=== PATIENT | male | born 1955 | race American Indian/Alaskan Native ===

== ENCOUNTER 2016-10-29 23:21 | Inpatient (IN) | payer MEDICAID ==
[2016-10-30 00:29] LABS: Basophils % (Auto) 1.2 % (0.0-1.8); Eosinophils % (Auto) 0.1 % (0.0-4.3); Hematocrit 41.8 % (35.5-45.6); Hemoglobin 13.7 gm/dl (11.8-15.2); Mean Corpuscular HGB Conc 33 % (32-34); Mean Corpuscular Hemoglobin 30 pg (28-32); Mean Corpuscular Volume 91 fl (84-94); Red Blood Count 4.61 M/mm3 (3.65-5.03); Red Cell Distribution Width 14.4 % (13.2-15.2); White Blood Count 4.5 K/mm3 (4.5-11.0)
[2016-10-30 00:43] LABS: Anion Gap 20 mmol/L; BUN/Creatinine Ratio 15.83; Blood Urea Nitrogen 19 mg/dL (9-20); Calcium 9.6 mg/dL (8.4-10.2); Carbon Dioxide 26 mmol/L (22-30); Chloride 102.4 mmol/L (98-107); Glucose 123 mg/dL (75-100); Potassium 5.2 mmol/L (3.6-5.0); Sodium 143 mmol/L (137-145)
[2016-10-30 03:17] LABS: Bilirubin,Urine NEG (Negative); Blood,Urine SM (Negative); Ketones,Urine TR mg/dL (Negative); Leukocyte Esterase,Urine NEG (Negative); Mucus,Urine 3+ /HPF; Nitrite,Urine NEG (Negative); Urobilinogen,Urine < 2.0 mg/dL (<2.0)
[2016-10-30 03:22] LABS: Protein,Urine >500 mg/dL (Negative)
[2016-10-30] MEDS ORDERED: HCTZ PO ONE (04:47)
[2016-10-30] MEDS ORDERED: LASIX PO ONE (04:47)
[2016-10-30] MEDS ORDERED: NITROSTAT SL ONE (04:47)
[2016-10-30 04:57] LABS: Platelet Count 201 K/mm3 (140-440)
[2016-10-30] MEDS ORDERED: ZOFRAN IV ONE (06:55)
[2016-10-30] MEDS ORDERED: NITRO-BID 2% TP ONE (06:55)
[2016-10-30] MEDS ORDERED: PEPCID IV ONE (06:55)
[2016-10-30] MEDS ORDERED: LASIX IV ONE (06:55)
[2016-10-30] MEDS ORDERED: MORPHINE IV ONE (06:55)
[2016-10-30 07:09] LABS: Creatine Kinase MB 5.8 ng/mL (0.0-4.0)
[2016-10-30 07:10] LABS: Albumin 3.8 g/dL (3.9-5); Albumin/Globulin Ratio 1.2 %; Bilirubin,Direct 0.2 mg/dL (0-0.2); Bilirubin,Indirect 0.7 mg/dL; Bilirubin,Total 0.9 mg/dL (0.1-1.2); Creatine Kinase 240 units/L (55-170); Total Protein 6.9 g/dL (6.3-8.2)
--- NOTE | 2016-10-30 07:14 | Emergency Department Report ---
ED Shortness of Breath HPI - General Chief Complaint: Nausea/Vomiting/Diarrhea Stated Complaint: HIGH BP/EMESIS Time Seen by Provider: 10/30/16 06:34 Source: patient, old records reviewed (card cath 10/2015 normal coronary arteries , EF 20-25%, nonischemic cardiopathy. See report for other findings.) Mode of arrival: Ambulatory Limitations: No Limitations - History of Present Illness Initial Comments: 61-year-old male with past medical history of COPD (no home O2), hypertension and CHF presents to the hospital with complaints of gradually worsening shortness of breath and nausea vomiting. The past week patient has been experiencing dyspnea exertion, orthopnea, PND, intermittent chest tightness. Moderate Chest tightness episodes last 10-20 minutes and spontaneously improved. The past 2 days she has had nausea vomiting with diarrhea and by mouth intolerance. Patient ran out of his medication including Lasix and BP meds 1 month ago. Patient does not have a primary care doctor has poor understanding of his current health condition. Last visit here was one year ago when patient received a cardiac cath and echocardiogram. Patient states he has had several visits to [place] in other hospitals since that admission. He has a history of wearing a defibrillator vest in the past. He does not have a PMD and does not typically follow-up as outpatient instead presents to the ER after his meds ran out. Card: seen by [facility] here in the past - Related Data Previous Rx's Medication Instructions Recorded Last Taken Type Albuterol Sulfate [Ventolin HFA] 2 puff IH Q4H PRN #1 hfa.aer.ad 11/02/15 Unknown Rx Budesoni/Formotero 160-4.5(Nf) 2 puff IH BID #1 inha 11/02/15 Unknown Rx [Symbicort 160-4.5 (Nf)] Carvedilol [Coreg] 25 mg PO BID #60 tablet 11/02/15 Unknown Rx Doxycycline [Vibramycin CAP] 100 mg PO BID #10 capsule 11/02/15 Unknown Rx Furosemide [Lasix] 20 mg PO BID #60 tablet 11/02/15 Unknown Rx Lisinopril [Zestril TAB] 20 mg PO QDAY #30 tablet 11/02/15 Unknown Rx Allergies Allergy/AdvReac Type Severity Reaction Status Date / Time No Known Allergies Allergy Unverified 03/14/16 04:30 ED Review of Systems ROS: Stated complaint: HIGH BP/EMESIS Other details as noted in HPI Comment: All other systems reviewed and negative Other: Constitutional: No fevers chills Eyes: No eye pain visual changes ENT: No ear pain or throat pain Neck: Denies pain Respiratory: + cough productive of yellow sputum Cardiovascular: Denies palpitations, syncope GI: As per HPI : Denies dysuria Musculoskeletal: Denies back pain Skin: Denies rash, lesions, erythema Neurologic: Denies headache, numbness, weakness ED Past Medical Hx - Past Medical History Hx Hypertension: Yes Hx Heart Attack/AMI: No Hx Congestive Heart Failure: Yes Hx Diabetes: No Hx Deep Vein Thrombosis: No Hx Pulmonary Embolism: No Hx Asthma: No Hx COPD: Yes Hx Tuberculosis: No Hx HIV: No Additional medical history: Cardiac cath 11/04/2015 normal coronary arteries. Severe LV dysfunction 20-25%. Nonischemic cardiomyopathy. Echocardiogram 10/31: EF 10-15%, severe LA dilitation, mild to mod RA dilitation, Severe RV dilitation, LV mild dilitation - Surgical History Hx Coronary Stent: No Hx Open Heart Surgery: No Hx Pacemaker: No Hx Internal Defibrillator: No Hx Cholecystectomy: No Hx Appendectomy: No Hx Breast Surgery: No - Social History Smoking Status: Current Every Day Smoker Substance Use Type: None - Medications Home Medications: Home Medications Medication Instructions Recorded Confirmed Last Taken Type Albuterol Sulfate [Ventolin HFA] 2 puff IH Q4H PRN #1 hfa.aer.ad 11/02/15 Unknown Rx Budesoni/Formotero 160-4.5(Nf) 2 puff IH BID #1 inha 11/02/15 Unknown Rx [Symbicort 160-4.5 (Nf)] Carvedilol [Coreg] 25 mg PO BID #60 tablet 11/02/15 Unknown Rx Doxycycline [Vibramycin CAP] 100 mg PO BID #10 capsule 11/02/15 Unknown Rx Furosemide [Lasix] 20 mg PO BID #60 tablet 11/02/15 Unknown Rx Lisinopril [Zestril TAB] 20 mg PO QDAY #30 tablet 11/02/15 Unknown Rx ED Physical Exam - General Limitations: No Limitations - Other Other exam information: General: No limitations, patient is alert in no acute distress Head exam: Atraumatic, normocephalic Eyes exam: Normal appearance ENT: Moist mucous membrane, normal oropharynx Neck exam: Normal inspection, full range of motion, no meningismus nontender Respiratory exam: Bilateral crackles, no tachypnea or accessory muscle use Cardiovascular: Normal rate and rhythm, normal heart sounds Abdomen: Soft, nondistended, epigastric tenderness, with normal bowel sounds, no rebound, or guarding Extremity: Full range of motion normal inspection no deformity, no edema Back: Normal Inspection, full range of motion, no tenderness Neurologic: Alert, oriented x3, cranial nerves intact, no motor or sensory deficit Psychiatric: normal affect, normal mood Skin: Warm, dry, intact ED Course Vital Signs 10/29/16 10/30/16 10/30/16 23:34 03:24 06:03 Temperature 98.2 F Pulse Rate 104 H 101 H Respiratory 14 19 Rate Blood Pressure 162/122 Blood Pressure 155/119 160/129 [Left] O2 Sat by Pulse 107 H 99 99 Oximetry ED Medical Decision Making - Lab Data Result diagrams: 10/30/16 00:00 10/30/16 00:00 Lab Results 10/30/16 10/30/16 10/30/16 Range/Units 00:00 00:00 00:00 WBC 4.5 (4.5-11.0) K/mm3 RBC 4.61 (3.65-5.03) M/mm3 Hgb 13.7 (11.8-15.2) gm/dl Hct 41.8 (35.5-45.6) % MCV 91 (84-94) fl MCH 30 (28-32) pg MCHC 33 (32-34) % RDW 14.4 (13.2-15.2) % Plt Count 201 (140-440) K/mm3 Lymph % (Auto) 43.3 H (13.4-35.0) % [place] % (Auto) 7.7 H (0.0-7.3) % Eos % (Auto) 0.1 (0.0-4.3) % Baso % (Auto) 1.2 (0.0-1.8) % Lymph # 2.0 (1.2-5.4) K/mm3 [place] # 0.3 (0.0-0.8) K/mm3 Eos # 0.0 (0.0-0.4) K/mm3 Baso # 0.1 (0.0-0.1) K/mm3 Seg Neutrophils % 47.7 (40.0-70.0) % Seg Neutrophils # 2.1 (1.8-7.7) K/mm3 Sodium 143 (137-145) mmol/L Potassium 5.2 H (3.6-5.0) mmol/L Chloride 102.4 (98-107) mmol/L Carbon Dioxide 26 (22-30) mmol/L Anion Gap 20 mmol/L BUN 19 (9-20) mg/dL Creatinine 1.2 (0.8-1.5) mg/dL Estimated GFR > 60 ml/min BUN/Creatinine Ratio 15.83 % Glucose 123 H (75-100) mg/dL Calcium 9.6 (8.4-10.2) mg/dL Total Bilirubin (0.1-1.2) mg/dL Direct Bilirubin (0-0.2) mg/dL Indirect Bilirubin mg/dL AST (5-40) units/L ALT (7-56) units/L Alkaline Phosphatase (35-129) units/L Total Creatine Kinase (55-170) units/L CK-MB (CK-2) (0.0-4.0) ng/mL CK-MB (CK-2) Rel Index (0-4) Troponin T (0.00-0.029) ng/mL NT-Pro-B Natriuret Pep 60747 H (0-900) pg/mL Total Protein (6.3-8.2) g/dL Albumin (3.9-5) g/dL Albumin/Globulin Ratio % Lipase (13-60) units/L Urine Color (Yellow) Urine Turbidity (Clear) Urine pH (5.0-7.0) Ur Specific [place] (1.003-1.030) Urine Protein (Negative) mg/dL Urine Glucose (UA) (Negative) mg/dL Urine Ketones (Negative) mg/dL Urine Blood (Negative) Urine Nitrite (Negative) Urine Bilirubin (Negative) Urine Urobilinogen (<2.0) mg/dL Ur Leukocyte Esterase (Negative) Urine WBC (Auto) (0.0-6.0) /HPF Urine RBC (Auto) (0.0-6.0) /HPF U Epithel Cells (Auto) (0-13.0) /HPF Amorphous Crystals Hyaline Casts /LPF Urine Mucus /HPF 10/30/16 10/30/16 10/30/16 Range/Units 00:00 00:00 Unknown WBC (4.5-11.0) K/mm3 RBC (3.65-5.03) M/mm3 Hgb (11.8-15.2) gm/dl Hct (35.5-45.6) % MCV (84-94) fl MCH (28-32) pg MCHC (32-34) % RDW (13.2-15.2) % Plt Count (140-440) K/mm3 Lymph % (Auto) (13.4-35.0) % [place] % (Auto) (0.0-7.3) % Eos % (Auto) (0.0-4.3) % Baso % (Auto) (0.0-1.8) % Lymph # (1.2-5.4) K/mm3 [place] # (0.0-0.8) K/mm3 Eos # (0.0-0.4) K/mm3 Baso # (0.0-0.1) K/mm3 Seg Neutrophils % (40.0-70.0) % Seg Neutrophils # (1.8-7.7) K/mm3 Sodium (137-145) mmol/L Potassium (3.6-5.0) mmol/L Chloride (98-107) mmol/L Carbon Dioxide (22-30) mmol/L Anion Gap mmol/L BUN (9-20) mg/dL Creatinine (0.8-1.5) mg/dL Estimated GFR ml/min BUN/Creatinine Ratio % Glucose (75-100) mg/dL Calcium (8.4-10.2) mg/dL Total Bilirubin 0.9 (0.1-1.2) mg/dL Direct Bilirubin 0.2 (0-0.2) mg/dL Indirect Bilirubin 0.7 mg/dL AST 41 H (5-40) units/L ALT 36 (7-56) units/L Alkaline Phosphatase 57 (35-129) units/L Total Creatine Kinase 240 H (55-170) units/L CK-MB (CK-2) 5.8 H (0.0-4.0) ng/mL CK-MB (CK-2) Rel Index 2.4 (0-4) Troponin T < 0.010 (0.00-0.029) ng/mL NT-Pro-B Natriuret Pep (0-900) pg/mL Total Protein 6.9 (6.3-8.2) g/dL Albumin 3.8 L (3.9-5) g/dL Albumin/Globulin Ratio 1.2 % Lipase 11 L (13-60) units/L Urine Color Suzy (Yellow) Urine Turbidity Clear (Clear) Urine pH 5.0 (5.0-7.0) Ur Specific [place] 1.031 H (1.003-1.030) Urine Protein >500 (Negative) mg/dL Urine Glucose (UA) 50 (Negative) mg/dL Urine Ketones Tr (Negative) mg/dL Urine Blood Sm (Negative) Urine Nitrite Neg (Negative) Urine Bilirubin Neg (Negative) Urine Urobilinogen < 2.0 (<2.0) mg/dL Ur Leukocyte Esterase Neg (Negative) Urine WBC (Auto) 2.0 (0.0-6.0) /HPF Urine RBC (Auto) 4.0 (0.0-6.0) /HPF U Epithel Cells (Auto) < 1.0 (0-13.0) /HPF Amorphous Crystals Few Hyaline Casts 88 /LPF Urine Mucus 3+ /HPF - EKG Data -: EKG Interpreted by Me (nsr [id number], Biatrial enlargment, lat t inv, no stemi) - EKG Data When compared to previous EKG there are: previous EKG unavailable - Radiology Data Radiology results: image reviewed (chest x-ray: Pulmonary vascular congestion) - Medical Decision Making I spent time explaining patient's current medical condition based on previous cardiac cath and echocardiogram. I informed him of his heart failure and poor ejection fraction and the importance of medication compliance and follow-up. Patient voices understanding and states he will attempt to follow up better and a future. At this time patient requires admission to the hospital for acute CHF exacerbation secondary to medication noncompliance. Patient also has epigastric pain without signs of fever, leukocytosis, or elevated LFTs or lipase. Medications received in the ED: Patient received Lasix 20 mg by mouth, hydrochlorothiazide, and nitroglycerin sublingual prior to my evaluation. After my evaluation patient received nitroglycerin paste, IV lasix, Zofran, morphine, and Pepcid. - Differential Diagnosis gastritis, pancreatitis, MS, unstable angina, CHF Critical Care Time: No Critical care attestation.: If time is entered above; I have spent that time in minutes in the direct care of this critically ill patient, excluding procedure time. ED Disposition Clinical Impression: Acute CHF, Epigastric pain, Nausea and vomiting, Noncompliance with medication regimen, Uncontrolled hypertension, Chest pain Disposition: OP ADMITTED IP TO THIS HOSP Is pt being admited?: Yes Condition: Stable Instructions: Chest Pain (ED) Time of Disposition: 07:14 ( hosp, discussed with Dr Lundberg)
--- NOTE | 2016-10-30 07:23 | XRay Report ---
AP CHEST History: Chest pain Findings: Cardiomegaly and pulmonary venous congestion are stable since 11/01/15. The lungs are generally clear. No evidence for CHF, pneumonia or pneumothorax. The thoracic cage is intact. Impression: Cardiomegaly and pulmonary venous congestion unchanged since the exam one year ago.
--- NOTE | 2016-10-30 08:24 | Admit Criteria Form ---
Admission Criteria Documentation: HEART FAILURE: COMMON COMPLICATIONS Clinical Indications for Inpatient Care (Place 'X' for any and all applicable criteria): Ongoing inpatient care may be indicated for heart failure with ANY ONE of the following (1)(2)(3)(4)(5): [ ]I. Ongoing need for care for primary condition requiring frequent therapy adjustments because of changes in cardiac function (eg, drug dosage changes for drugs that are renally metabolized) [ ]II. New-onset heart failure [ ]III. Heart failure with decreased urine output not responsive to attempts to optimize volume status [ ]IV. Acute cardiac ischemia causing or associated with failure [X]V. Complications of heart failure, including ANY ONE of the following: [ ]a) Pericardial effusion [ ]b) Symptomatic pleural effusion [ ]c) O2 saturation <90% or PO2 < 60 mm Hg (8.0 kPa) on room air or require baseline supplemental O2 [ ]d) Tachypnea [X]e) Dyspnea [ ]f) Syncope [ ]g) Change in mental status [ ]h) Acute renal insufficiency that is severe (reduction of more than 50% in estimated glomerular filtration rate from baseline) or progressive reduction of more than 25% in estimated glomerular filtration rate from baseline, with creatinine continuing to rise) [ ]i) Hemodynamic instability [ ]j) Anasarca [ ]k) Clinically significant metabolic abnormalities due to heart failure (eg, new-onset metabolic acidosis) Extended stay beyond goal length of stay for primary condition may be needed until ALL of the following are present(1)(3): [ ]a) Stable and effective diuretic regimen established (or patient on stable dialysis regimen if in chronic renal failure) [ ]b) Breathing comfortably at rest [ ]c) Saturation of arterial oxygen greater than 90% or at acceptable baseline [ ]d) Pulmonary edema absent or improved [ ]e) Hemodynamic stability [ ]f) Volume status acceptable on oral medication [ ]g) Peripheral or sacral edema absent or improved [ ]h) Renal function stable and manageable at a lower level of care [ ]i) Complications (eg, pleural effusion) resolved or manageable at a lower level of care [ ]j) Patient or caregiver has received written discharge instructions or educational material addressing activity level, diet, discharge medications, follow-up appointment, weight monitoring, and what to do if symptoms worsen The original [facility] content created by [employer] has been revised. The portions of the content which have been revised are identified through the use of italic text or in bold, and [facility] has neither reviewed nor approved the modified material.All other unmodified content is copyright [facility]. Please see references footnoted in the original [facility] edition 2016 Admission Criteria Met: Yes
--- NOTE | 2016-10-30 09:14 | History and Physical Report ---
History of Present Illness Date of examination: 10/30/16 Date of admission: 10/30/16 07:48 Chief complaint: sob History of present illness: 61-year-old male with past medical history of COPD (no home O2), hypertension and CHF presents to the hospital with complaints of gradually worsening shortness of breath, nausea and vomiting. Patient denies hematemesis. Patient has been experiencing dyspnea exertion, orthopnea, PND and intermittent chest tightness for the past week. The chest discomfort is described as tightness with episodes lasting 10-20 minutes. He is also had nausea vomiting with diarrhea for the past 2 days. He ran out of his medication including Lasix and BP meds 1 month ago. Patient does not have a primary care doctor has poor understanding of his current health condition. Last visit here was one year ago when patient received a cardiac cath and echocardiogram. Patient states he has had several visits to [place] in other hospitals since that admission. He has a history of wearing a defibrillator vest in the past. He does not have a PMD and does not typically follow-up as outpatient instead presents to the ER after his meds ran out. Past History Past Medical History: COPD, heart failure, hypertension Past Surgical History: No surgical history Social history: no significant social history Family history: no significant family history Medications and Allergies Allergies Allergy/AdvReac Type Severity Reaction Status Date / Time No Known Allergies Allergy Unverified 11/01/15 04:30 Home Medications Medication Instructions Recorded Confirmed Last Taken Type Albuterol Sulfate [Ventolin HFA] 2 puff IH Q4H PRN #1 hfa.aer.ad 11/02/15 Unknown Rx Budesoni/Formotero 160-4.5(Nf) 2 puff IH BID #1 inha 11/02/15 Unknown Rx [Symbicort 160-4.5 (Nf)] Carvedilol [Coreg] 25 mg PO BID #60 tablet 11/02/15 Unknown Rx Doxycycline [Vibramycin CAP] 100 mg PO BID #10 capsule 11/02/15 Unknown Rx Furosemide [Lasix] 20 mg PO BID #60 tablet 11/02/15 Unknown Rx Lisinopril [Zestril TAB] 20 mg PO QDAY #30 tablet 11/02/15 Unknown Rx Review of Systems All systems: negative Exam - Constitutional Vitals: Temp Pulse Resp BP Pulse Ox 98.2 F 102 H 30 H 157/124 96 10/29/16 23:34 10/30/16 08:15 10/30/16 08:15 10/30/16 08:01 10/30/16 08:15 General appearance: Present: no acute distress, well-nourished - EENT Eyes: Present: PERRL ENT: hearing intact, clear oral mucosa - Neck Neck: Present: supple, normal ROM - Respiratory Respiratory effort: normal Respiratory: bilateral: diminished, rales - Cardiovascular Heart Sounds: Present: S1 & S2. Absent: rub, click - Extremities Extremities: pulses symmetrical, No edema Peripheral Pulses: within normal limits - Abdominal General gastrointestinal: Present: soft, non-tender, non-distended, normal bowel sounds Male genitourinary: Present: normal - Integumentary Integumentary: Present: clear, warm, dry - Musculoskeletal Musculoskeletal: gait normal, strength equal bilaterally - Psychiatric Psychiatric: appropriate mood/affect, intact judgment & insight - Neurologic Neurologic: CNII-XII intact, moves all extremities Results - Labs CBC & Chem 7: 10/30/16 00:00 10/30/16 00:00 Labs: Laboratory Last Values WBC 4.5 K/mm3 (4.5-11.0) 10/30/16 00:00 RBC 4.61 M/mm3 (3.65-5.03) 10/30/16 00:00 Hgb 13.7 gm/dl (11.8-15.2) 10/30/16 00:00 Hct 41.8 % (35.5-45.6) 10/30/16 00:00 MCV 91 fl (84-94) 10/30/16 00:00 MCH 30 pg (28-32) 10/30/16 00:00 MCHC 33 % (32-34) 10/30/16 00:00 RDW 14.4 % (13.2-15.2) 10/30/16 00:00 Plt Count 201 K/mm3 (140-440) 10/30/16 00:00 Lymph % (Auto) 43.3 % (13.4-35.0) H 10/30/16 00:00 [place] % (Auto) 7.7 % (0.0-7.3) H 10/30/16 00:00 Eos % (Auto) 0.1 % (0.0-4.3) 10/30/16 00:00 Baso % (Auto) 1.2 % (0.0-1.8) 10/30/16 00:00 Lymph # 2.0 K/mm3 (1.2-5.4) 10/30/16 00:00 [place] # 0.3 K/mm3 (0.0-0.8) 10/30/16 00:00 Eos # 0.0 K/mm3 (0.0-0.4) 10/30/16 00:00 Baso # 0.1 K/mm3 (0.0-0.1) 10/30/16 00:00 Seg Neutrophils % 47.7 % (40.0-70.0) 10/30/16 00:00 Seg Neutrophils # 2.1 K/mm3 (1.8-7.7) 10/30/16 00:00 Sodium 143 mmol/L (137-145) 10/30/16 00:00 Potassium 5.2 mmol/L (3.6-5.0) H 10/30/16 00:00 Chloride 102.4 mmol/L (98-107) 10/30/16 00:00 Carbon Dioxide 26 mmol/L (22-30) 10/30/16 00:00 Anion Gap 20 mmol/L 10/30/16 00:00 BUN 19 mg/dL (9-20) 10/30/16 00:00 Creatinine 1.2 mg/dL (0.8-1.5) 10/30/16 00:00 Estimated GFR > 60 ml/min 10/30/16 00:00 BUN/Creatinine Ratio 15.83 % 10/30/16 00:00 Glucose 123 mg/dL (75-100) H 10/30/16 00:00 Calcium 9.6 mg/dL (8.4-10.2) 10/30/16 00:00 Total Bilirubin 0.9 mg/dL (0.1-1.2) 10/30/16 00:00 Direct Bilirubin 0.2 mg/dL (0-0.2) 10/30/16 00:00 Indirect Bilirubin 0.7 mg/dL 10/30/16 00:00 AST 41 units/L (5-40) H 10/30/16 00:00 ALT 36 units/L (7-56) 10/30/16 00:00 Alkaline Phosphatase 57 units/L (35-129) 10/30/16 00:00 Total Creatine Kinase 240 units/L (55-170) H 10/30/16 00:00 CK-MB (CK-2) 5.8 ng/mL (0.0-4.0) H 10/30/16 00:00 CK-MB (CK-2) Rel Index 2.4 (0-4) 10/30/16 00:00 Troponin T < 0.010 ng/mL (0.00-0.029) 10/30/16 00:00 NT-Pro-B Natriuret Pep 46237 pg/mL (0-900) H 10/30/16 00:00 Total Protein 6.9 g/dL (6.3-8.2) 10/30/16 00:00 Albumin 3.8 g/dL (3.9-5) L 10/30/16 00:00 Albumin/Globulin Ratio 1.2 % 10/30/16 00:00 Lipase 11 units/L (13-60) L 10/30/16 00:00 Urine Color Suzy (Yellow) 10/30/16 Unknown Urine Turbidity Clear (Clear) 10/30/16 Unknown Urine pH 5.0 (5.0-7.0) 10/30/16 Unknown Ur Specific [place] 1.031 (1.003-1.030) H 10/30/16 Unknown Urine Protein >500 mg/dL (Negative) 10/30/16 Unknown Urine Glucose (UA) 50 mg/dL (Negative) 10/30/16 Unknown Urine Ketones Tr mg/dL (Negative) 10/30/16 Unknown Urine Blood Sm (Negative) 10/30/16 Unknown Urine Nitrite Neg (Negative) 10/30/16 Unknown Urine Bilirubin Neg (Negative) 10/30/16 Unknown Urine Urobilinogen < 2.0 mg/dL (<2.0) 10/30/16 Unknown Ur Leukocyte Esterase Neg (Negative) 10/30/16 Unknown Urine WBC (Auto) 2.0 /HPF (0.0-6.0) 10/30/16 Unknown Urine RBC (Auto) 4.0 /HPF (0.0-6.0) 10/30/16 Unknown U Epithel Cells (Auto) < 1.0 /HPF (0-13.0) 10/30/16 Unknown Amorphous Crystals Few 10/30/16 Unknown Hyaline Casts 88 /LPF 10/30/16 Unknown Urine Mucus 3+ /HPF 10/30/16 Unknown Assessment and Plan Assessment and plan: 1. Acute on chronic systolic heart failure exacerbation. Cardiac cath 2015 normal coronary arteries. Severe LV dysfunction 20-25%. Nonischemic cardiomyopathy. Echocardiogram 11/01/2015: EF 10-15%, severe LA dilitation, mild to mod RA dilitation, Severe RV dilitation, LV mild dilitation. Patient will be placed on the heart failure pathway. Cardiology consultation. 2. Accelerated hypertension. Resume antihypertensive medications. 3. Medical noncompliance. Patient has been counseled.
[2016-10-30] MEDS ORDERED: ZOFRAN IV PRN (09:19)
[2016-10-30] MEDS ORDERED: DULCOLAX PR PRN (09:19)
[2016-10-30] MEDS: COREG PO SCH ×2 (11:26→21:56)
[2016-10-30] MEDS: LASIX IV SCH (11:26)
[2016-10-30] MEDS: ZESTRIL PO SCH ×2 (11:26→21:57)
[2016-10-30] MEDS: LOVENOX SUB-Q SCH (11:26)
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
[2016-10-30] MEDS: TYLENOL PO PRN (20:45)
[2016-10-31 06:23] LABS: Basophils % (Auto) 0.8 % (0.0-1.8); Eosinophils % (Auto) 0.5 % (0.0-4.3); Hematocrit 39.8 % (35.5-45.6); Mean Corpuscular HGB Conc 33 % (32-34); Mean Corpuscular Hemoglobin 29 pg (28-32); Mean Corpuscular Volume 89 fl (84-94); Platelet Count 178 K/mm3 (140-440); Red Blood Count 4.47 M/mm3 (3.65-5.03); Red Cell Distribution Width 14.3 % (13.2-15.2); White Blood Count 4.8 K/mm3 (4.5-11.0)
[2016-10-31 06:32] LABS: Anion Gap 17 mmol/L; BUN/Creatinine Ratio 17.14; Blood Urea Nitrogen 24 mg/dL (9-20); Calcium 8.6 mg/dL (8.4-10.2); Carbon Dioxide 28 mmol/L (22-30); Chloride 98.4 mmol/L (98-107); Glucose 115 mg/dL (75-100); Potassium 4.3 mmol/L (3.6-5.0); Sodium 139 mmol/L (137-145)
[2016-10-31] MEDS: LOVENOX SUB-Q SCH (10:05)
[2016-10-31] MEDS: ZESTRIL PO SCH ×2 (10:06→21:32)
[2016-10-31] MEDS: TYLENOL PO PRN (10:06)
[2016-10-31] MEDS: COREG PO SCH ×2 (10:06→21:32)
[2016-10-31] MEDS: LASIX IV SCH (10:06)
[2016-10-31] MEDS: MILK OF MAGNESIA PO PRN ×2 (10:06→21:32)
--- NOTE | 2016-10-31 10:59 | Progress Note ---
Assessment and Plan Acute on chronic systolic heart failure due to non-compliance Echo 10/2016: biatrial enlargement, dilated RV, EF 15-20%, moderate MR, moderate TR, RVSP 50 mmHg continue IV lasix, coreg, lisinopril Atypical chest pain-->resolved troponin negative no acute EKG changes [facility] 10/2015: normal coronaries Non-ischemic cardiomyopathy refusing ICD implantation Hypertension Tobacco abuse Cocaine abuse Non-compliance Continue current management and close monitoring of volume status and renal indices. The patient has been seen in conjunction with Dr. Gross who agrees with the assessment and plan of care. Subjective Date of service: 10/31/16 Principal diagnosis: acute on chronic systolic heart failure Interval history: The patient is resting comfortably in bed. He is still short of breath with minimal exertion. Sinus rhythm on the monitor. 6 beat run of NSVT noted this morning. Objective Last Vital Signs Temp 99.0 F 10/31/16 08:27 Pulse 89 10/31/16 10:06 Resp 18 10/31/16 10:06 BP 141/104 10/31/16 10:06 Pulse Ox 96 10/31/16 10:00 - Physical Examination General: No Apparent Distress HEENT: Positive: PERRL, Normocephaly, Mucus Membranes Moist Neck: Positive: neck supple, trachea midline Cardiac: Positive: Reg Rate and Rhythm, S1/S2, Systolic Murmur Lungs: Positive: clear to auscultation Neuro: Positive: Grossly Intact Abdomen: Positive: Soft, Active Bowel Sounds. Negative: Tender Skin: Positive: Clear. Negative: Rash Extremities: Absent: edema - Labs and Meds CBC 10/31/16 Range/Units 05:45 WBC 4.8 (4.5-11.0) K/mm3 RBC 4.47 (3.65-5.03) M/mm3 Hgb 13.0 (11.8-15.2) gm/dl Hct 39.8 (35.5-45.6) % Plt Count 178 (140-440) K/mm3 Lymph # 2.2 (1.2-5.4) K/mm3 [place] # 0.5 (0.0-0.8) K/mm3 Eos # 0.0 (0.0-0.4) K/mm3 Baso # 0.0 (0.0-0.1) K/mm3 Comprehensive Metabolic Panel 10/31/16 Range/Units 05:45 Sodium 139 (137-145) mmol/L Potassium 4.3 (3.6-5.0) mmol/L Chloride 98.4 (98-107) mmol/L Carbon Dioxide 28 (22-30) mmol/L BUN 24 H (9-20) mg/dL Creatinine 1.4 (0.8-1.5) mg/dL Glucose 115 H (75-100) mg/dL Calcium 8.6 (8.4-10.2) mg/dL - Imaging and Cardiology EKG: image reviewed Echo: report reviewed ( 10/2016: biatrial enlargement, dilated RV, EF 15-20%, moderate MR, moderate TR, RVSP 50 mmHg) - EKG Sinus rhythms and dysrhythmias: sinus rhythm
--- NOTE | 2016-10-31 16:44 | Progress Note ---
Assessment and Plan Assessment and plan: 1. Acute on chronic systolic heart failure exacerbation. Cardiac cath 2015 normal coronary arteries. Severe LV dysfunction 20-25%. Nonischemic cardiomyopathy. Echocardiogram 11/01/2015: EF 10-15%, severe LA dilitation, mild to mod RA dilitation, Severe RV dilitation, LV mild dilitation. Cardiology input appreciated, patient continues to refuse ICD placement, states that he will consider his outpatient. Continue diuretics, continue cardiac medications 2. Accelerated hypertension. Resume antihypertensive medications. 3. Medical noncompliance. Patient has been counseled. 4. Chronic pain syndrome pain meds have been ordered. 5. hx of cocaine abuse he was counseled about cesssation, he was also told that cocaine abuse puts him at risk of [place] and sudden , and he verbalized understanding. Tentative discharge home tomorrow History Interval history: continues to have VILLAGOMEZ, he has chronic chest pain that occurs at rest. LE edema is now resolved Hospitalist Physical - Physical exam Narrative exam: General: Patient appears well in no distress, cachectic HEENT: MMM, EOMI cardiac: S1-S2 heard lungs: clear to auscultation, abdomen: soft, nontender, nondistended bowel sounds positive extremities: no edema clubbing or cyanosis Skin: no rash or lesion Neuro: no focal deficit Psych: appropriate behavior and mood, cognition intact - Constitutional Vitals: Temp Pulse Resp BP Pulse Ox 97.9 F 70 18 147/103 99 10/31/16 13:08 10/31/16 13:08 10/31/16 13:08 10/31/16 13:08 10/31/16 13:08 General appearance: Present: no acute distress Results - Labs CBC & Chem 7: 10/31/16 05:45 10/31/16 05:45 Labs: Laboratory Last Values WBC 4.8 K/mm3 (4.5-11.0) 10/31/16 05:45 RBC 4.47 M/mm3 (3.65-5.03) 10/31/16 05:45 Hgb 13.0 gm/dl (11.8-15.2) 10/31/16 05:45 Hct 39.8 % (35.5-45.6) 10/31/16 05:45 MCV 89 fl (84-94) 10/31/16 05:45 MCH 29 pg (28-32) 10/31/16 05:45 MCHC 33 % (32-34) 10/31/16 05:45 RDW 14.3 % (13.2-15.2) 10/31/16 05:45 Plt Count 178 K/mm3 (140-440) 10/31/16 05:45 Lymph % (Auto) 46.2 % (13.4-35.0) H 10/31/16 05:45 [place] % (Auto) 10.8 % (0.0-7.3) H 10/31/16 05:45 Eos % (Auto) 0.5 % (0.0-4.3) 10/31/16 05:45 Baso % (Auto) 0.8 % (0.0-1.8) 10/31/16 05:45 Lymph # 2.2 K/mm3 (1.2-5.4) 10/31/16 05:45 [place] # 0.5 K/mm3 (0.0-0.8) 10/31/16 05:45 Eos # 0.0 K/mm3 (0.0-0.4) 10/31/16 05:45 Baso # 0.0 K/mm3 (0.0-0.1) 10/31/16 05:45 Seg Neutrophils % 41.7 % (40.0-70.0) 10/31/16 05:45 Seg Neutrophils # 2.0 K/mm3 (1.8-7.7) 10/31/16 05:45 Sodium 139 mmol/L (137-145) 10/31/16 05:45 Potassium 4.3 mmol/L (3.6-5.0) 10/31/16 05:45 Chloride 98.4 mmol/L (98-107) 10/31/16 05:45 Carbon Dioxide 28 mmol/L (22-30) 10/31/16 05:45 Anion Gap 17 mmol/L 10/31/16 05:45 BUN 24 mg/dL (9-20) H 10/31/16 05:45 Creatinine 1.4 mg/dL (0.8-1.5) 10/31/16 05:45 Estimated GFR > 60 ml/min 10/31/16 05:45 BUN/Creatinine Ratio 17.14 % 10/31/16 05:45 Glucose 115 mg/dL (75-100) H 10/31/16 05:45 Calcium 8.6 mg/dL (8.4-10.2) 10/31/16 05:45 Total Bilirubin 0.9 mg/dL (0.1-1.2) 10/30/16 00:00 Direct Bilirubin 0.2 mg/dL (0-0.2) 10/30/16 00:00 Indirect Bilirubin 0.7 mg/dL 10/30/16 00:00 AST 41 units/L (5-40) H 10/30/16 00:00 ALT 36 units/L (7-56) 10/30/16 00:00 Alkaline Phosphatase 57 units/L (35-129) 10/30/16 00:00 Total Creatine Kinase 240 units/L (55-170) H 10/30/16 00:00 CK-MB (CK-2) 5.8 ng/mL (0.0-4.0) H 10/30/16 00:00 CK-MB (CK-2) Rel Index 2.4 (0-4) 10/30/16 00:00 Troponin T < 0.010 ng/mL (0.00-0.029) 10/30/16 00:00 NT-Pro-B Natriuret Pep 97681 pg/mL (0-900) H 10/30/16 00:00 Total Protein 6.9 g/dL (6.3-8.2) 10/30/16 00:00 Albumin 3.8 g/dL (3.9-5) L 10/30/16 00:00 Albumin/Globulin Ratio 1.2 % 10/30/16 00:00 Lipase 11 units/L (13-60) L 10/30/16 00:00 Urine Color Suzy (Yellow) 10/30/16 Unknown Urine Turbidity Clear (Clear) 10/30/16 Unknown Urine pH 5.0 (5.0-7.0) 10/30/16 Unknown Ur Specific [place] 1.031 (1.003-1.030) H 10/30/16 Unknown Urine Protein >500 mg/dL (Negative) 10/30/16 Unknown Urine Glucose (UA) 50 mg/dL (Negative) 10/30/16 Unknown Urine Ketones Tr mg/dL (Negative) 10/30/16 Unknown Urine Blood Sm (Negative) 10/30/16 Unknown Urine Nitrite Neg (Negative) 10/30/16 Unknown Urine Bilirubin Neg (Negative) 10/30/16 Unknown Urine Urobilinogen < 2.0 mg/dL (<2.0) 10/30/16 Unknown Ur Leukocyte Esterase Neg (Negative) 10/30/16 Unknown Urine WBC (Auto) 2.0 /HPF (0.0-6.0) 10/30/16 Unknown Urine RBC (Auto) 4.0 /HPF (0.0-6.0) 10/30/16 Unknown U Epithel Cells (Auto) < 1.0 /HPF (0-13.0) 10/30/16 Unknown Amorphous Crystals Few 10/30/16 Unknown Hyaline Casts 88 /LPF 10/30/16 Unknown Urine Mucus 3+ /HPF 10/30/16 Unknown
[2016-10-31] MEDS: PERCOCET 5/325 PO PRN ×2 (17:24→21:34)
[2016-11-01] MEDS: MILK OF MAGNESIA PO PRN (06:34)
[2016-11-01] MEDS: LOVENOX SUB-Q SCH (09:20)
[2016-11-01] MEDS: LASIX IV SCH (09:20)
[2016-11-01] MEDS: ZESTRIL PO SCH (09:20)
[2016-11-01] MEDS: COREG PO SCH (09:21)
[2016-11-01 09:52] VITALS: BP 136/91
[2016-11-01] MEDS: PERCOCET 5/325 PO PRN (10:05)
--- NOTE | 2016-11-01 10:55 | Progress Note ---
Assessment and Plan Acute on chronic systolic heart failure-->clinically improving due to non-compliance Echo 10/2016: biatrial enlargement, dilated RV, EF 15-20%, moderate MR, moderate TR, RVSP 50 mmHg continue lasix, coreg, lisinopril Atypical chest pain-->resolved troponin negative no acute EKG changes [facility] 10/2015: normal coronaries Non-ischemic cardiomyopathy pt. wore Lifevest for 3 months, refusing to wear Lifevest again but will consider ICD implantation EP evaluation as an outpatient to discuss ICD Hypertension Tobacco abuse Cocaine abuse Non-compliance Stable cardiac status. Continue current management. Follow up in the office in next week. Will schedule EP evaluation as an outpatient to discuss ICD implantation. The patient has been seen in conjunction with Dr. Gross who agrees with the assessment and plan of care. Subjective Date of service: 11/01/16 Principal diagnosis: acute on chronic systolic heart failure Interval history: The patient is resting in bed. Shortness of breath improved. He complains of left sided chest pain with radiation to his left lower back that is worse with movement. Sinus rhythm on the monitor. Objective Last Vital Signs Temp 97.4 F L 11/01/16 08:00 Pulse 79 11/01/16 08:00 Resp 18 11/01/16 08:00 BP 136/91 11/01/16 08:00 Pulse Ox 96 11/01/16 08:00 - Physical Examination General: No Apparent Distress HEENT: Positive: PERRL, Normocephaly, Mucus Membranes Moist Neck: Positive: neck supple, trachea midline Cardiac: Positive: Reg Rate and Rhythm, S1/S2 Lungs: Positive: clear to auscultation Neuro: Positive: Grossly Intact Abdomen: Positive: Soft, Active Bowel Sounds. Negative: Tender Skin: Positive: Clear. Negative: Rash Extremities: Absent: edema - Imaging and Cardiology EKG: image reviewed Echo: report reviewed ( 10/2016: biatrial enlargement, dilated RV, EF 15-20%, moderate MR, moderate TR, RVSP 50 mmHg) - Telemetry EKG Rhythm: Sinus Rhythm - EKG Sinus rhythms and dysrhythmias: sinus rhythm
--- NOTE | 2016-11-01 13:38 | Discharge Summary ---
Providers - Providers Date of Admission: 10/30/16 07:48 Attending physician: SHANTHI WHITLOCK MD 10/30/16 09:19 Consult to Physician [CONS] Routine Consulting Provider: RAZIA GASCA Reason For Exam: chf Place consult to:: Radha GASCA Notified:: Radha GASCA Primary care physician: [employer]OM WORKER Hospitalization Condition: Stable Hospital course: 1. Acute on chronic systolic heart failure exacerbation. Cardiac cath 2015 normal coronary arteries. Severe LV dysfunction 20-25%. Nonischemic cardiomyopathy. Echocardiogram 11/01/2015: EF 10-15%, severe LA dilitation, mild to mod RA dilitation, Severe RV dilitation, LV mild dilitation. Cardiology input appreciated, patient continues to refuse ICD placement, states that he will consider his outpatient. Continue diuretics, continue cardiac medications 2. Accelerated hypertension. Resume antihypertensive medications. 3. Medical noncompliance. Patient has been counseled. 4. Chronic pain syndrome pain meds have been ordered. 5. hx of cocaine abuse he was counseled about cesssation, he was also told that cocaine abuse puts him at risk of [place] and sudden , and he verbalized understanding. Disposition: DISCHARGED TO HOME OR SELFCARE Time spent for discharge: 35 minutes Core Measure Documentation - Palliative Care Palliative Care/ Comfort Measures: Not Applicable - Core Measures Any of the following diagnoses?: heart failure - Heart Failure Discharge Requirements PREMA/ARB for LVSD if EF <40%: Yes Beta alex at discharge: Yes Exam - Physical Exam Narrative exam: General: Patient appears well in no distress, cachectic HEENT: MMM, EOMI cardiac: S1-S2 heard lungs: clear to auscultation, abdomen: soft, nontender, nondistended bowel sounds positive extremities: no edema clubbing or cyanosis Skin: no rash or lesion Neuro: no focal deficit Psych: appropriate behavior and mood, cognition intact - Constitutional Vitals: Temp Pulse Resp BP Pulse Ox 97.4 F L 79 18 136/91 96 11/01/16 08:00 11/01/16 08:00 11/01/16 08:00 11/01/16 08:00 11/01/16 08:00 Plan Follow up with: [facility] [Outside] - 11/07/16 9:45 am Prescriptions: Albuterol Sulfate [Ventolin HFA] 2 puff IH Q4H PRN #1 hfa.aer.ad PRN Reason: Shortness Of Breath Aspirin EC [Aspirin Enteric Coated TAB] 81 mg PO QDAY #30 tablet.dr [place]/Formotero 160-4.5(Nf) [Symbicort 160-4.5 (Nf)] 2 puff IH BID #1 inha Carvedilol [Coreg] 3.125 mg PO BID #60 tablet Furosemide [Lasix TAB] 40 mg PO QDAY #30 tablet Lisinopril [Zestril TAB] 20 mg PO BID #60 tablet oxyCODONE /ACETAMINOPHEN [Percocet 5/325 mg] 1 tab PO Q4H PRN #30 tablet PRN Reason: Pain, Moderate (4-6) Spironolactone [Aldactone] 25 mg PO QDAY #30 tablet
--- NOTE | 2016-11-06 07:52 | Query- Nutrition ---
Dear Date:_11/06/16 Rug Receiving Clerk/CDS:Kwame Bergeron/Carroll Phone#:_[phone] Exercise your independent professional judgment when responding to query. Questions asked do not imply a particular answer is desired or expected. We greatly appreciate your clarification on this issue. Clinical Documentation States: 61-year-old male with past medical history of COPD (no home O2), hypertension and CHF presents to the hospital with complaints of gradually worsening shortness of breath, nausea and vomiting. Patient denies hematemesis. Patient has been experiencing dyspnea exertion, orthopnea, PND and intermittent chest tightness for the past week. The chest discomfort is described as tightness with episodes lasting 10-20 minutes. He is also had nausea vomiting with diarrhea for the past 2 days. Clinical Findings Show: BMI:17.9 Nutrition assessment: Underweight, Suboptimal oral intake with a thin frame, Physical exam: moderate temporal wasting. Please select the most appropriate option 3 [x] Mild Malnutrition [] Mild - Moderate Malnutrition [] Moderate - Severe Malnutrition [] Severe Malnutrition Serum Albumin 2.8 to 3.4 g/dl or Pre-albumin 5 to 17 mg/dl1,2 Inadequate nutritional intake1,2,3,4 NPO > 5 days Weight loss: 5% in 1 month or 7.5% in 3 months or 10% in 6 months1, 3,4 BMI 16 to 18.4 or Weight <90% of ideal body weight1,2,3,4 Serum Albumin < 2.8 g/ dl1,2 Lymphocytes < 1500/ L2 Inadequate nutritional intake3, high stress e.g. major trauma, sepsis,pancreatitis, dia etc. Decubitus ulcers1,2, , skin breakdown2, easy hair pluckability2 Weight <80% standard for height2 Triceps skin fold <3 mm2 Mid-arm muscle circumference <15 cm2 Creatinine-height index <60% standard2 [ ] Cachexia [ ] Emaciated w/Malnutrition [ ] Other: [ ] Unable to determine [ ] Comment/Explanation: Present on Admission: [ x] Yes (Y) [ ] Clinically undeterminable (W) [ ] No (N) Please also document response in your Progress Notes and/or Discharge Summary and indicate if the condition was present on admission. MTDD
== END 2016-11-01 13:30 | disposition home or self-care (01) | DRG 292 ==
LOC: ED 23:21 → 4A 10-30 07:48
PROVIDERS: ADMIT Internal Medicine; ATTEND Internal Medicine
DX: I11.0 Hypertensive heart disease with heart failure (principal); E44.1 Mild protein-calorie malnutrition; Z68.1 Body mass index [BMI] 19.9 or less, adult; I50.23 Acute on chronic systolic (congestive) heart failure; I42.9 Cardiomyopathy, unspecified; J44.9 Chronic obstructive pulmonary disease, unspecified; F17.200 Nicotine dependence, unspecified, uncomplicated; R07.89 Other chest pain; F14.10 Cocaine abuse, uncomplicated; G89.4 Chronic pain syndrome; Z91.14 Patient's other noncompliance with medication regimen
CPT/HCPCS: 36415; 71010; 80048; 80074; 81001; 82550; 82553; 83690; 83880; 84484; 85025; 93005; 93010; 93306; 96374; 96375; J1650; J1940; J2270; J2405

== ENCOUNTER 2016-12-28 10:37 | Emergency (ER) | payer MEDICAID ==
[2016-12-28 11:19] LABS: Basophils % (Auto) 1.3 % (0.0-1.8); Eosinophils % (Auto) 0.6 % (0.0-4.3); Hematocrit 38.1 % (35.5-45.6); Hemoglobin 12.2 gm/dl (11.8-15.2); Mean Corpuscular HGB Conc 32 % (32-34); Mean Corpuscular Hemoglobin 29 pg (28-32); Mean Corpuscular Volume 91 fl (84-94); Platelet Count 222 K/mm3 (140-440); Red Blood Count 4.19 M/mm3 (3.65-5.03); Red Cell Distribution Width 14.5 % (13.2-15.2)
--- NOTE | 2016-12-28 11:32 | XRay Report ---
CHEST 2 VIEWS INDICATION: Chest pain, shortness of breath for 2-3 days. History of bronchitis, smoker. COMPARISON: 10/30/2016 FINDINGS: PA and lateral chest radiographs again demonstrate borderline cardiomegaly and slight aortic knob calcifications. Prominent lung markings centrally with slight peribronchial thickening possible. Minimal fluid or thickening along the major fissures may also be present. No significant pleural effusions or CHF however with mildly hyperexpanded lungs and mild bibasilar scarring. Intact bones. CONCLUSION: No acute chest process with borderline cardiomegaly, possible bronchitis and underlying COPD, as described. Thank you for the opportunity to participate in this patient's care.
[2016-12-28 11:36] LABS: Anion Gap 21 mmol/L; BUN/Creatinine Ratio 11.81; Blood Urea Nitrogen 13 mg/dL (9-20); Calcium 8.8 mg/dL (8.4-10.2); Carbon Dioxide 23 mmol/L (22-30); Chloride 102.4 mmol/L (98-107); Creatine Kinase 162 units/L (55-170); Glucose 106 mg/dL (75-100); Potassium 4.8 mmol/L (3.6-5.0); Sodium 142 mmol/L (137-145)
[2016-12-28 14:32] LABS: Creatine Kinase MB 3.1 ng/mL (0.0-4.0)
--- NOTE | 2016-12-28 17:25 | Emergency Department Report ---
ED Shortness of Breath HPI - General Chief Complaint: Chest Pain Stated Complaint: CHEST PAIN/SOB/CHEST TIGHTNESS Time Seen by Provider: 12/28/16 16:41 Source: patient, RN notes reviewed Mode of arrival: Ambulatory Limitations: No Limitations - History of Present Illness Initial Comments: 61-year-old male presents to the emergency department complaining of difficulty breathing for the past 3 days. Patient reports cough productive of thick, white sputum. He also reports intermittent tightness in his chest. There has been some nausea, but the patient denies vomiting. There has been no fever. There are no other complaints. MD Complaint: shortness of breath -: Gradual, days(s) (3) Severity: mild Pain Scale: 3 Quality: other (tightness) Consistency: intermittent Improves With: nothing Worsens With: nothing Known History Of: COPD, congestive heart failure Associated Symptoms: chest pain Treatments Prior to Arrival: none - Related Data Home Oxygen Therapy: No Previous Rx's Medication Instructions Recorded Last Taken Type Albuterol Sulfate [Ventolin HFA] 2 puff IH Q4H PRN #1 hfa.aer.ad 12/28/16 Unknown Rx Aspirin EC [Aspirin Enteric Coated 81 mg PO QDAY #30 tablet. 12/28/16 Unknown Rx TAB] Budesoni/Formotero 160-4.5(Nf) 2 puff IH BID #1 inha 12/28/16 Unknown Rx [Symbicort 160-4.5 (Nf)] Carvedilol [Coreg] 3.125 mg PO BID #60 tablet 12/28/16 Unknown Rx Furosemide [Lasix TAB] 40 mg PO QDAY #30 tablet 12/28/16 Unknown Rx Levofloxacin [Levaquin TAB] 500 mg PO QDAY #7 tablet 12/28/16 Unknown Rx Lisinopril [Zestril TAB] 20 mg PO BID #60 tablet 12/28/16 Unknown Rx Spironolactone [Aldactone] 25 mg PO QDAY #30 tablet 12/28/16 Unknown Rx oxyCODONE /ACETAMINOPHEN [Percocet 1 tab PO Q4H PRN #30 tablet 12/28/16 Unknown Rx 5/325 mg] predniSONE [Deltasone] 3 tab PO QDAY #15 tablet 12/28/16 Unknown Rx Allergies Allergy/AdvReac Type Severity Reaction Status Date / Time No Known Allergies Allergy Unverified 11/01/15 04:30 ED Review of Systems ROS: Stated complaint: CHEST PAIN/SOB/CHEST TIGHTNESS Other details as noted in HPI Comment: All other systems reviewed and negative Respiratory: cough, shortness of breath Cardiovascular: chest pain ED Past Medical Hx - Past Medical History Previous Medical History?: Yes Hx Hypertension: Yes Hx Heart Attack/AMI: No Hx Congestive Heart Failure: Yes Hx Diabetes: No Hx Deep Vein Thrombosis: No Hx Pulmonary Embolism: No Hx Asthma: No Hx COPD: Yes Hx Tuberculosis: No Hx HIV: No Additional medical history: Cardiac cath 11/04/2015 normal coronary arteries. Severe LV dysfunction 20-25%. Nonischemic cardiomyopathy. Echocardiogram 10/31: EF 10-15%, severe LA dilitation, mild to mod RA dilitation, Severe RV dilitation, LV mild dilitation - Surgical History Past Surgical History?: No - Family History Family history: no significant - Social History Smoking Status: Current Every Day Smoker Substance Use Type: Alcohol - Medications Home Medications: Home Medications Medication Instructions Recorded Confirmed Last Taken Type Albuterol Sulfate [Ventolin HFA] 2 puff IH Q4H PRN #1 hfa.aer.ad 12/28/16 Unknown Rx Aspirin EC [Aspirin Enteric Coated 81 mg PO QDAY #30 tablet.dr 12/28/16 Unknown Rx TAB] Budesoni/Formotero 160-4.5(Nf) 2 puff IH BID #1 inha 12/28/16 Unknown Rx [Symbicort 160-4.5 (Nf)] Carvedilol [Coreg] 3.125 mg PO BID #60 tablet 12/28/16 Unknown Rx Furosemide [Lasix TAB] 40 mg PO QDAY #30 tablet 12/28/16 Unknown Rx Levofloxacin [Levaquin TAB] 500 mg PO QDAY #7 tablet 12/28/16 Unknown Rx Lisinopril [Zestril TAB] 20 mg PO BID #60 tablet 12/28/16 Unknown Rx Spironolactone [Aldactone] 25 mg PO QDAY #30 tablet 12/28/16 Unknown Rx oxyCODONE /ACETAMINOPHEN [Percocet 1 tab PO Q4H PRN #30 tablet 12/28/16 Unknown Rx 5/325 mg] predniSONE [Deltasone] 3 tab PO QDAY #15 tablet 12/28/16 Unknown Rx ED Physical Exam - General Limitations: No Limitations General appearance: alert, in no apparent distress - Head Head exam: Present: atraumatic, normocephalic - Eye Eye exam: Present: normal appearance, PERRL, EOMI - ENT ENT exam: Present: normal exam, normal orophraynx, mucous membranes moist - Neck Neck exam: Present: normal inspection, full ROM. Absent: tenderness - Respiratory Respiratory exam: Present: normal lung sounds bilaterally. Absent: respiratory distress - Cardiovascular Cardiovascular Exam: Present: regular rate, normal rhythm, normal heart sounds - GI/Abdominal GI/Abdominal exam: Present: soft, normal bowel sounds. Absent: distended, tenderness - Extremities Exam Extremities exam: Present: normal inspection, full ROM. Absent: tenderness - Back Exam Back exam: Present: normal inspection, full ROM. Absent: tenderness - Neurological Exam Neurological exam: Present: alert, oriented X3. Absent: motor sensory deficit - Skin Skin exam: Present: warm, dry, intact ED Course Vital Signs 12/28/16 12/28/16 12/28/16 10:53 15:45 15:53 Temperature 97.4 F L 98.0 F Pulse Rate 103 H 102 H 97 H Respiratory 18 19 16 Rate Blood Pressure 150/116 Blood Pressure 148/113 [Left] O2 Sat by Pulse 99 96 97 Oximetry 12/28/16 12/28/16 15:55 18:03 Temperature Pulse Rate 106 H Respiratory 16 15 Rate Blood Pressure Blood Pressure 151/114 [Left] O2 Sat by Pulse 96 95 Oximetry ED Medical Decision Making - Lab Data Result diagrams: 12/28/16 11:07 12/28/16 11:07 - EKG Data -: EKG Interpreted by [place] EKG shows normal: sinus rhythm, axis, intervals, QRS complexes Rate: tachycardia - EKG Data When compared to previous EKG there are: no significant change Interpretation: unchanged when compared t (10/30/2016), nonspecific ST-T wave [place] - Radiology Data Radiology results: report reviewed Chest x-ray shows changes consistent with COPD. There is no evidence of pleural effusion or other changes consistent with CHF. - Medical Decision Making Lab and imaging results reviewed and discussed with the patient. There is no evidence of volume overload, CHF, or cardiac etiology of his symptoms. Patient will be discharged home on oral anti-biotics and steroids for a COPD exacerbation. Patient is also requesting refills on all of his medications. These will also be provided. - Differential Diagnosis COPD exacerbation, CHF Critical care attestation.: If time is entered above; I have spent that time in minutes in the direct care of this critically ill patient, excluding procedure time. ED Disposition Clinical Impression: COPD exacerbation Disposition: DISCHARGED TO HOME OR SELFCARE Is pt being admited?: No Condition: Stable Instructions: Chronic Obstructive Pulmonary Disease (ED) Prescriptions: Albuterol Sulfate [Ventolin HFA] 2 puff IH Q4H PRN #1 hfa.aer.ad PRN Reason: Shortness Of Breath Aspirin EC [Aspirin Enteric Coated TAB] 81 mg PO QDAY #30 tablet.[address] Anderson/Formotero 160-4.5(Nf) [Symbicort 160-4.5 (Nf)] 2 puff IH BID #1 inha Carvedilol [Coreg] 3.125 mg PO BID #60 tablet Furosemide [Lasix TAB] 40 mg PO QDAY #30 tablet Levofloxacin [Levaquin TAB] 500 mg PO QDAY #7 tablet Lisinopril [Zestril TAB] 20 mg PO BID #60 tablet oxyCODONE /ACETAMINOPHEN [Percocet 5/325 mg] 1 tab PO Q4H PRN #30 tablet PRN Reason: Pain, Moderate (4-6) predniSONE [Deltasone] 3 tab PO QDAY #15 tablet Spironolactone [Aldactone] 25 mg PO QDAY #30 tablet Referrals: PRIMARY CARE,MD [Primary Care Provider] - 3-5 Days Time of Disposition: 18:21
[2016-12-28 18:03] VITALS: BP 151/114
[2016-12-28] MEDS ORDERED: PERCOCET 5/325 ONE (18:25)
[2016-12-28] MEDS ORDERED: PERCOCET 5/325 PO ONE (18:28)
== END 2016-12-28 18:54 | disposition home or self-care (01) ==
LOC: ED 10:37
DX: J44.1 Chronic obstructive pulmonary disease with (acute) exacerbation (principal); I10 Essential (primary) hypertension; I50.9 Heart failure, unspecified; F17.200 Nicotine dependence, unspecified, uncomplicated
CPT/HCPCS: 36415; 71020; 80048; 82550; 82553; 84484; 85025; 93005; 93010; 99285

== ENCOUNTER 2017-03-03 15:00 | Emergency (ER) | payer MEDICAID ==
[2017-03-03 15:19] VITALS: BP 146/120
[2017-03-03 15:53] LABS: Anion Gap 19 mmol/L; BUN/Creatinine Ratio 10.83; Blood Urea Nitrogen 13 mg/dL (9-20); Calcium 8.7 mg/dL (8.4-10.2); Carbon Dioxide 24 mmol/L (22-30); Chloride 104.3 mmol/L (98-107); Glucose 112 mg/dL (75-100); Potassium 3.5 mmol/L (3.6-5.0); Sodium 144 mmol/L (137-145)
[2017-03-03 16:02] LABS: Hematocrit 41.9 % (35.5-45.6); Hemoglobin 13.7 gm/dl (11.8-15.2); Mean Corpuscular HGB Conc 33 % (32-34); Mean Corpuscular Hemoglobin 29 pg (28-32); Mean Corpuscular Volume 90 fl (84-94); Red Blood Count 4.68 M/mm3 (3.65-5.03); White Blood Count 4.9 K/mm3 (4.5-11.0)
[2017-03-03 16:09] LABS: Platelet Count 143 K/mm3 (140-440)
--- NOTE | 2017-03-04 10:45 | ED Elopement Review ---
ED Pt Elopement review - Results review Lab results: Laboratory Tests 03/03/17 03/03/17 03/03/17 15:23 15:23 18:15 WBC 4.9 RBC 4.68 Hgb 13.7 Hct 41.9 MCV 90 MCH 29 MCHC 33 RDW 16.0 H Plt Count 143 Lymph % (Auto) 41.2 H [place] % (Auto) 10.0 H Eos % (Auto) 1.0 Baso % (Auto) 1.0 Lymph # 2.0 [place] # 0.5 Eos # 0.1 Baso # 0.0 Seg Neutrophils % 46.8 Seg Neutrophils # 2.3 Sodium 144 Potassium 3.5 L Chloride 104.3 Carbon Dioxide 24 Anion Gap 19 BUN 13 Creatinine 1.2 Estimated GFR > 60 BUN/Creatinine Ratio 10.83 Glucose 112 H Calcium 8.7 Troponin T < 0.010 < 0.010 - Call Back decision Pt Call Back Decision: Call pt to return to ED [facility] (Chest pain, SOB)
== END 2017-03-04 05:01 | disposition left against medical advice (07) ==
LOC: ED 15:00
DX: R07.9 Chest pain, unspecified (principal); R06.02 Shortness of breath; Z53.21 Procedure and treatment not carried out due to patient leaving prior to being seen by health care provider
CPT/HCPCS: 36415; 80048; 84484; 85025; 93005; 93010

== ENCOUNTER 2018-12-15 18:57 | Inpatient (IN) | payer MEDICAID ==
--- NOTE | 2018-12-15 19:18 | Emergency Department Report ---
Blank Doc - Documentation Documentation: 63 y/o male c/o sob, cough, feet swelling times 5 day. PMH copd, chf and HTN. Ordered, cxr, cbc, cmp, bnp
[2018-12-15 19:31] LABS: Basophils % (Auto) 0.4 % (0.0-1.8); Eosinophils # (Auto) 0.1 K/mm3 (0.0-0.4); Eosinophils % (Auto) 1.1 % (0.0-4.3); Hematocrit 38.4 % (35.5-45.6); Hemoglobin 12.7 gm/dl (11.8-15.2); Lymphocytes % (Auto) 37.1 % (13.4-35.0); Mean Corpuscular HGB Conc 33 % (32-34); Mean Corpuscular Volume 89 fl (84-94); Monocytes # (Auto) 0.7 K/mm3 (0.0-0.8); Platelet Count 157 K/mm3 (140-440)
[2018-12-15 19:51] LABS: Alanine Aminotransferase 95 units/L (7-56); Albumin 3.7 g/dL (3.9-5); BUN/Creatinine Ratio 19; Blood Urea Nitrogen 23 mg/dL (9-20); Calcium 8.8 mg/dL (8.4-10.2); Hemolysis Index 10
--- NOTE | 2018-12-15 20:00 | XRay Report ---
PROCEDURE: XR CHEST ROUTINE 2V TECHNIQUE: Chest radiograph , PA and lateral views. HISTORY: sob, cough COMPARISONS: CXR 06/17/2018, 12/28/2016, CT chest 02/05/2017. FINDINGS: Heart: Mildly enlarged but stable. Mediastinum/Vessels: Normal. Lungs/Pleural space: Bullous changes in the left base are again noted. New linear atelectasis in the right base is noted laterally. Small nodular densities in the lateral right upper lung overlying the posterior left fifth rib are unchanged compared to 2017 and likely fibrotic. Bony thorax: No acute osseous abnormality. Life support devices: None. IMPRESSION: Stable cardiomegaly. Right basilar atelectasis is new. Stable chronic findings in the lef t lung. This document is electronically signed by Donya Odonnell MD., December 15 2018 07:58:47 PM ET
--- NOTE | 2018-12-15 20:04 | Emergency Department Report ---
ED General Adult HPI - General Chief complaint: Dyspnea/Respdistress Stated complaint: FRANSICO,SWOLLEN LEGS Time Seen by Provider: 12/15/18 20:02 Source: patient, RN notes reviewed, old records reviewed Mode of arrival: Ambulatory Limitations: Physical Limitation - History of Present Illness Initial comments: Cardiology: Dr. Ariel Serna no pmd as per patient This is a 63-year-old gentleman. His past medical history includes hypertension, congestive heart failure, nonsustained ventricular tachycardia, noncompliance with life vest, reported seizure, COPD, CK D stage III, nonischemic cardiomyopathy with an ejection fraction of 10-15%. He has a known history of medication noncompliance, and polysubstance use. The patient presents to the emergency room with a complaint of lower extremity swelling, chest pressure, shortness of breath. He denies DVT, pulmonary embolus risk factors. He reports that his symptoms have gotten worse over the past few days. They worse with physical exertion. The decreased with rest. The chest discomfort is right-sided and central. The patient indicates it does not radiate to the back, arms and neck. He has vomiting, he denies diaphoresis. Patient had a cardiac catheterization in October 2015, which demonstrated normal coronary arteries. The patient had a nuclear stress test May 2018, which demonstrated no evidence of ischemia. -: Gradual, days(s) Location: chest Severity scale (0 -10): 3 Quality: aching Consistency: intermittent Improves with: rest Worsens with: movement - Related Data Previous Rx's Medication Instructions Recorded Last Taken Type ALBUTEROL Inhaler(NF) [VENTOLIN 1 puff IH Q4H PRN #1 unit 06/19/18 Unknown Rx Inhaler(NF)] Acetaminophen [Acetaminophen TAB] 650 mg PO Q4H PRN #15 tablet 06/19/18 Unknown Rx AtorvaSTATin [Lipitor] 40 mg PO QHS #30 tablet 06/19/18 Unknown Rx Bumetanide [Bumex 1 mg tab] 1 mg PO Q12H #60 tablet 06/19/18 Unknown Rx Carvedilol [Coreg] 25 mg PO Q12H #60 tablet 06/19/18 Unknown Rx Losartan [Cozaar] 25 mg PO QDAY #30 tablet 06/19/18 Unknown Rx Spironolactone [Aldactone] 25 mg PO QDAY #30 tablet 06/19/18 Unknown Rx oxyCODONE /ACETAMINOPHEN [Percocet 1 tab PO Q6H PRN #10 tablet 06/19/18 Unknown Rx 5/325 mg] Allergies Allergy/AdvReac Type Severity Reaction Status Date / Time No Known Allergies Allergy Verified 03/03/17 15:13 ED Review of Systems ROS: Stated complaint: FRANSICO,SWOLLEN LEGS Other details as noted in HPI Constitutional: malaise. denies: fever Eyes: denies: eye discharge ENT: congestion Respiratory: shortness of breath Cardiovascular: chest pain, edema Gastrointestinal: denies: vomiting Genitourinary: denies: dysuria Musculoskeletal: back pain, arthralgia Skin: denies: lesions Neurological: weakness Psychiatric: anxiety ED Past Medical Hx - Past Medical History Hx Hypertension: Yes Hx Heart Attack/AMI: No Hx Congestive Heart Failure: Yes Hx Diabetes: No Hx Deep Vein Thrombosis: No Hx Pulmonary Embolism: No Hx Seizures: Yes Hx Asthma: No Hx COPD: Yes Hx Tuberculosis: No Hx HIV: No Additional medical history: Cardiac cath 11/04/2015 normal coronary arteries. Severe LV dysfunction 20-25%. Nonischemic cardiomyopathy. Echocardiogram 11/01/2015: EF 10-15%, severe LA dilitation, mild to mod RA dilitation, Severe RV dilitation, LV mild dilitation - Surgical History Past Surgical History?: No Hx Coronary Stent: No Hx Open Heart Surgery: No Hx Pacemaker: No Hx Internal Defibrillator: No Hx Cholecystectomy: No Hx Appendectomy: No Hx Breast Surgery: No - Social History Smoking Status: Current Every Day Smoker Substance Use Type: None - Medications Home Medications: Home Medications Medication Instructions Recorded Confirmed Last Taken Type ALBUTEROL Inhaler(NF) [VENTOLIN 1 puff IH Q4H PRN #1 unit 06/19/18 12/15/18 Unknown Rx Inhaler(NF)] Acetaminophen [Acetaminophen TAB] 650 mg PO Q4H PRN #15 tablet 06/19/18 12/15/18 Unknown Rx AtorvaSTATin [Lipitor] 40 mg PO QHS #30 tablet 06/19/18 12/15/18 Unknown Rx Bumetanide [Bumex 1 mg tab] 1 mg PO Q12H #60 tablet 06/19/18 12/15/18 Unknown Rx Carvedilol [Coreg] 25 mg PO Q12H #60 tablet 10/31/18 04/28/19 Unknown Rx Losartan [Cozaar] 25 mg PO QDAY #30 tablet 06/19/18 12/15/18 Unknown Rx Spironolactone [Aldactone] 25 mg PO QDAY #30 tablet 06/19/18 12/15/18 Unknown Rx oxyCODONE /ACETAMINOPHEN [Percocet 1 tab PO Q6H PRN #10 tablet 06/19/18 12/15/18 Unknown Rx 5/325 mg] ED Physical Exam - General Limitations: Physical Limitation General appearance: alert, anxious - Head Head exam: Present: atraumatic, normocephalic - Eye Eye exam: Present: normal appearance, EOMI. Absent: nystagmus - ENT ENT exam: Present: normal exam, normal orophraynx, mucous membranes moist, normal external ear exam - Neck Neck exam: Present: normal inspection, full ROM. Absent: tenderness, meningismus - Respiratory Respiratory exam: Present: decreased breath sounds. Absent: respiratory distress, wheezes, rales, rhonchi, stridor - Cardiovascular Cardiovascular Exam: Present: regular rate, normal rhythm, normal heart sounds. Absent: bradycardia, tachycardia, irregular rhythm, systolic murmur, diastolic murmur, rubs, gallop - GI/Abdominal GI/Abdominal exam: Present: soft. Absent: distended, tenderness, guarding, rebound, rigid, pulsatile mass - Rectal Rectal exam: Present: deferred - Extremities Exam Extremities exam: Present: normal inspection, pedal edema, other (2+ pulses noted in the bilateral upper, lower extremities. Compartments soft. No long bony tenderness. The pelvis is stable.). Absent: calf tenderness - Back Exam Back exam: Present: normal inspection, full ROM. Absent: tenderness, CVA tenderness (R), paraspinal tenderness, vertebral tenderness - Neurological Exam Neurological exam: Present: alert, CN II-XII intact, normal gait, other (Extraocular movements intact. Tongue midline. No facial droop. Facial sensation intact to light touch in the V1, V2, V3 distribution bilaterally. 5 and 5 strength in 4 extremities.. Sensation is intact to light touch in 4 extremities.). Absent: motor sensory deficit - Psychiatric Psychiatric exam: Present: anxious - Skin Skin exam: Present: warm, dry, intact, normal color. Absent: rash ED Course Vital Signs 12/15/18 12/15/18 12/15/18 19:16 20:10 20:30 Temperature 98 F 98 F Pulse Rate 101 H 98 H Pulse Rate [ Anterior Bilateral Throughout] Respiratory 26 H 30 H 28 H Rate Respiratory Rate [Anterior Bilateral Throughout] Blood Pressure 150/115 Blood Pressure 157/115 [Left] O2 Sat by Pulse 95 100 Oximetry 12/15/18 20:35 Temperature Pulse Rate Pulse Rate [ 90 Anterior Bilateral Throughout] Respiratory Rate Respiratory 22 Rate [Anterior Bilateral Throughout] Blood Pressure Blood Pressure [Left] O2 Sat by Pulse Oximetry ED Medical Decision Making - Lab Data Result diagrams: 12/15/18 19:21 12/15/18 19:21 Vital Signs 12/15/18 19:16 Temperature 98 F Pulse Rate 101 H Respiratory 26 H Rate Blood Pressure 150/115 O2 Sat by Pulse 95 Oximetry Lab Results 12/15/18 12/15/18 Range/Units 19:21 19:21 WBC 5.4 (4.5-11.0) K/mm3 RBC 4.30 (3.65-5.03) M/mm3 Hgb 12.7 (11.8-15.2) gm/dl Hct 38.4 (35.5-45.6) % MCV 89 (84-94) fl MCH 30 (28-32) pg MCHC 33 (32-34) % RDW 16.0 H (13.2-15.2) % Plt Count 157 (140-440) K/mm3 Lymph % (Auto) 37.1 H (13.4-35.0) % [place] % (Auto) 13.0 H (0.0-7.3) % Eos % (Auto) 1.1 (0.0-4.3) % Baso % (Auto) 0.4 (0.0-1.8) % Lymph # 2.0 (1.2-5.4) K/mm3 [place] # 0.7 (0.0-0.8) K/mm3 Eos # 0.1 (0.0-0.4) K/mm3 Baso # 0.0 (0.0-0.1) K/mm3 Seg Neutrophils % 48.4 (40.0-70.0) % Seg Neutrophils # 2.6 (1.8-7.7) K/mm3 Sodium 140 (137-145) mmol/L Potassium 4.2 (3.6-5.0) mmol/L Chloride 105.8 (98-107) mmol/L Carbon Dioxide 23 (22-30) mmol/L Anion Gap 15 mmol/L BUN 23 H (9-20) mg/dL Creatinine 1.2 (0.8-1.5) mg/dL Estimated GFR > 60 ml/min BUN/Creatinine Ratio 19 % Glucose 133 H (75-100) mg/dL Calcium 8.8 (8.4-10.2) mg/dL Total Bilirubin 1.40 H (0.1-1.2) mg/dL AST 96 H (5-40) units/L ALT 95 H (7-56) units/L Alkaline Phosphatase 86 (35-129) units/L NT-Pro-B Natriuret Pep 38230 H (0-900) pg/mL Total Protein 6.4 (6.3-8.2) g/dL Albumin 3.7 L (3.9-5) g/dL Albumin/Globulin Ratio 1.4 % - EKG Data -: EKG Interpreted by Sd EKG shows normal: sinus rhythm Rate: normal - EKG Data 12/15/18 21:29 This EKG shows normal sinus rhythm, 90 beats per minute, left axis deviation, left anterior fascicular block, QTC prolonged, atrial enlargement, left ve ntricular hypertrophy, poor R-wave progression, this is an abnormal EKG, this EKG is not consistent with ST elevation myocardial infarction. - Radiology Data Radiology results: report reviewed, image reviewed Print Report Referring Physician: LAURIE HENRY Patient Name: VINNIE CLEMENT Date of : 1955 Sex: Male Report Date: 2018-12-15 Report Status: Finalized Findings [facility] [address] [place] [address] XRay Report Signed Patient: VINNIE CLEMENT MR#: [id number] : 1955 Acct:[id number] Age/Sex: 63 / M ADM Date: 12/15/18 Loc: ED Attending Dr: Ordering Physician: ANGEL GARCIA Date of Service: 12/15/18 Procedure(s): XR chest routine 2V Accession Number(s): [id number] cc: ANGEL GARCIA Fluoro Time In Minutes: PROCEDURE: XR CHEST ROUTINE 2V TECHNIQUE: Chest radiograph , PA and lateral views. HISTORY: sob, cough COMPARISONS: CXR 06/17/2018, 12/28/2016, CT chest 02/05/2017. FINDINGS: Heart: Mildly enlarged but stable. Mediastinum/Vessels: Normal. Lungs/Pleural space: Bullous changes in the left base are again noted. New linear atelectasis in the right base is noted laterally. Small nodular densities in the lateral right upper lung overlying the posterior left fifth rib are unchanged compared to 2017 and likely fibrotic. Bony thorax: No acute osseous abnormality. Life support devices: None. IMPRESSION: Stable cardiomegaly. Right basilar atelectasis is new. Stable chron ic findings in the left lung. This document is electronically signed by Donya Odonnell MD., December 15 2018 07:58:47 PM ET Transcribed By: [facility] Dictated By: DONYA ODONNELL MD Electronically Authenticated By: DONYA ODONNELL MD Signed Date/Time: 12/15/181999 - Medical Decision Making Differential diagnosis, including not limited to: COPD, congestive heart failure, lower extremity edema, costochondritis, pneumonia, acute coronary syndrome, congestive hepatopathy, medication noncompliance Assessment and plan: 63-year-old gentleman with documented history of nonco mpliance, with physical exam evidence on laboratory evidence of decompensated congestive heart failure. I suspect the patient has not been taking his medications as previously directed. He denies DVT, pulmonary embolus risk factors, and he is low risk by well's criteria. His lung sounds are diminished, without crackles or rales. I suspect patient is expensive and that she'll progressive history of both his COPD and CHF. The patient was given a trial of ambulation, desaturated to 93%, and became very symptomatic. Therefore, he will be admitted to the medical service for optimization. In addition, he does not currently have his life vest, and he is at risk for potentially lethal arrhythmia. He will be medicated appropriately for presumed COPD and CHF exacerbations. Contacted covering double cutter, Dr. Villar, who agreed to follow in consultation. Contacted Hospital physician, Dr. Frost, who has accepted the patient to the medical service, for decompensated congestive heart failure. Liver function tests reviewed and appreciated, this is most likely secondary to right-sided heart failure, and resultant congestive hepatopathy. Critical Care Time: Yes Critical care time in (mins) excluding proc time.: 35 Critical care attestation.: If time is entered above; I have spent that time in minutes in the direct care of this critically ill patient, excluding procedure time. ED Disposition Clinical Impression: Cardiomyopathy, Bronchitis, COPD (chronic obstructive pulmonary disease), Pulmonary hypertension, Acute on chronic systolic heart failure Disposition: OP ADMIT IP TO THIS HOSP Is pt being admited?: Yes Does the pt Need Aspirin: Yes Condition: Stable Instructions: Chronic Bronchitis (ED), Chronic Obstructive Pulmonary Disease (ED)
[2018-12-15] MEDS ORDERED: TYLENOL PO STA (20:18)
[2018-12-15] MEDS ORDERED: ATROVENT IH ONE (20:18)
[2018-12-15] MEDS ORDERED: PROVENTIL IH ONE (20:18)
[2018-12-15] MEDS ORDERED: LASIX IV ONE (20:24)
[2018-12-15] MEDS ORDERED: SOLU-Medrol IV ONE (20:24)
[2018-12-15] MEDS ORDERED: VIBRAMYCIN PO ONE (20:24)
[2018-12-15] MEDS ORDERED: BUMEX PO STA (20:26)
[2018-12-15] MEDS ORDERED: BABY ASPIRIN PO ONE (21:33)
[2018-12-15] MEDS: COREG PO SCH (21:40)
[2018-12-15] MEDS: COZAAR PO SCH (21:42)
[2018-12-15] MEDS ORDERED: TYLENOL PO PRN (22:00)
[2018-12-15] MEDS ORDERED: SODIUM CHLORIDE FLUSH SYRINGE 10 ML IV PRN (22:00)
[2018-12-15] MEDS ORDERED: ZOFRAN IV PRN (22:00)
[2018-12-15] MEDS ORDERED: ALDACTONE PO SCH (22:00)
--- NOTE | 2018-12-15 22:09 | History and Physical Report ---
History of Present Illness Date of examination: 12/14/18 History of present illness: 63 year old man with History urinary history of COPD, CHF, hypertension, seizure comes emergency room with complaints of shortness of breath, orthopnea, PND and lower extremity edema. Also complaining of chest pain in the anterior chest, intubated to every 2 minutes, grabbing sensation, intensity 5/10, no radiation, cannot identify exacerbating or relieving factors. Admits to nausea and vomiting, diaphoresis or palpitation Review of systems Constitutional: no weight loss, chills, fever Ears, eyes, nose, mouth and throat: no nasal congestion, no nasal discharge, no sinus pressure, no vision change, no red eye. Neck: No neck pain or rigidity. Cardiovascular: no palpitations Respiratory: no cough Gastrointestinal: no hematochezia, abdominal pain Genitourinary : no frequency , no hematuria Musculoskeletal: no joint swelling or muscle ache Integumentary: no rash, no pruritis Neurological: no parathesias, no focal weakness Endocrine: no cold or heat intolerance, no polyuria or polydipsia Hematologic/Lymphatic: no easy bruising, no easy bleeding, no gland swelling Allergic/Immunologic: no urticaria, no angioedema. PAST MEDICAL HISTORY: COPD, CHF, hypertension, seizure PAST SURGICAL HISTORY: Brain surgery SOCIAL HISTORY: + alcohol, no drugs, +tobacco FAMILY HISTORY: Hypertension Medications and Allergies Allergies Allergy/AdvReac Type Severity Reaction Status Date / Time No Known Allergies Allergy Verified 03/03/17 15:13 Home Medications Medication Instructions Recorded Confirmed Last Taken Type Acetaminophen [Acetaminophen TAB] 650 mg PO Q4H PRN #15 tablet 06/19/18 12/15/18 Unknown Rx ALBUTEROL Inhaler(NF) [VENTOLIN 1 puff IH Q4H PRN #1 unit 12/17/18 Unknown Rx Inhaler(NF)] AtorvaSTATin [Lipitor] 40 mg PO QHS #30 tablet 12/17/18 Unknown Rx Bumetanide [Bumex 1 mg tab] 1 mg PO Q12H #60 tablet 12/17/18 Unknown Rx Carvedilol [Coreg] 25 mg PO Q12H #60 tablet 12/17/18 Unknown Rx Losartan [Cozaar] 25 mg PO QDAY #30 tablet 12/17/18 Unknown Rx Spironolactone [Aldactone] 25 mg PO QDAY #30 tablet 12/17/18 Unknown Rx oxyCODONE /ACETAMINOPHEN [Percocet 1 tab PO Q6H PRN #10 tablet 12/17/18 Unknown Rx 5/325 mg] Active Meds: Active Medications Acetaminophen (Tylenol) 650 mg PO Q4H PRN PRN Reason: Pain MILD(1-3)/Fever >100.5/WATERS Albuterol/Ipratropium (Duoneb *Not For Prn Use*) 1 ampul IH Q6HRT [facility] Aspirin (Baby Aspirin) 81 mg PO QDAY [facility] Atorvastatin Calcium (Lipitor) 40 mg PO QHS [facility] Last Admin: 12/15/18 21:42 Dose: Not Given Documented by: Carvedilol (Coreg) 25 mg PO Q12HR [facility] Last Admin: 12/15/18 21:40 Dose: 25 mg Documented by: Enoxaparin Sodium (Lovenox) 30 mg SUB-Q QDAY [facility] Furosemide (Lasix) 40 mg IV BID@0600,1800 [facility] Losartan Potassium (Cozaar) 25 mg PO QDAY [facility] Last Admin: 12/15/18 21:42 Dose: Not Given Documented by: Ondansetron HCl (Zofran) 4 mg IV Q8H PRN PRN Reason: Nausea And Vomiting Sodium Chloride (Sodium Chloride Flush Syringe 10 Ml) 10 ml IV BID [facility] Sodium Chloride (Sodium Chloride Flush Syringe 10 Ml) 10 ml IV PRN PRN PRN Reason: LINE FLUSH Spironolactone (Aldactone) 25 mg PO QDAY [facility] Last Admin: 12/15/18 21:36 Dose: 25 mg Documented by: Exam - Physical Exam Narrative exam: General Apperance: The patient lying in bed, breathing comfortable HEENT: Normocephalic, atraumatic. Pupils equally round and reactive to light, EOMI, no sclericterus or JVD or thyromegaly or nodule. , no carotid bruit, mucous membranes moist, no exudate or erythema Heart: S1-S2, regular is rhythm Lungs: Crackles bilaterally, breathing comfortable Abdomen: Positive bowel sounds, soft, nontender, nondistended, no organomegaly Extremities: + edema cyanosis clubbing Skin: no rash, nodule, warm and dry Neuro: cranial nerves 2-12 intact, speech is fluent, motor/sensory intact - Constitutional Vitals: Temp Pulse Resp BP Pulse Ox 98 F 93 H 25 H 143/117 100 12/15/18 20:10 12/15/18 21:40 12/15/18 21:30 12/15/18 21:40 12/15/18 20:10 Results - Labs CBC & Chem 7: 12/17/18 04:33 12/17/18 04:33 Labs: Abnormal lab results 12/15/18 12/15/18 Range/Units 19:21 19:21 RDW 16.0 H (13.2-15.2) % Lymph % (Auto) 37.1 H (13.4-35.0) % Glenn % (Auto) 13.0 H (0.0-7.3) % BUN 23 H (9-20) mg/dL Glucose 133 H (75-100) mg/dL Total Bilirubin 1.40 H (0.1-1.2) mg/dL AST 96 H (5-40) units/L ALT 95 H (7-56) units/L NT-Pro-B Natriuret Pep 80362 H (0-900) pg/mL Albumin 3.7 L (3.9-5) g/dL - Imaging and Cardiology EKG: image reviewed Chest x-ray: report reviewed Assessment and Plan Assessment Acute on chronic systolic CHF Chest pain Hypertension COPD Plan Admit to medicine Day received IV Lasix Continue beta alex, PREMA inhibitor, aspirin Check cardiac enzymes, echo, consult cardiology Continue appropriate outpatient medications DVT prophylaxis
[2018-12-15] MEDS: SODIUM CHLORIDE FLUSH SYRINGE 10 ML IV SCH (22:19)
[2018-12-15 23:52] LABS: Creatine Kinase MB 5.5 ng/mL (0.0-4.0)
[2018-12-16] MEDS: PERCOCET 5/325 PO PRN ×5 (00:11→22:08)
[2018-12-16] MEDS ORDERED: ATROVENT IH ONE (00:22)
[2018-12-16] MEDS ORDERED: PROVENTIL IH ONE (00:23)
[2018-12-16] MEDS: DUONEB *Not for PRN Use IH SCH ×4 (02:32→20:14)
[2018-12-16 05:45] LABS: BUN/Creatinine Ratio 19; Blood Urea Nitrogen 23 mg/dL (9-20); Calcium 8.4 mg/dL (8.4-10.2); Creatine Kinase MB 5.5 ng/mL (0.0-4.0); Hemolysis Index 1
[2018-12-16 05:51] LABS: Hematocrit 39.5 % (35.5-45.6); Hemoglobin 13.3 gm/dl (11.8-15.2); Mean Corpuscular HGB Conc 34 % (32-34); Mean Corpuscular Volume 88 fl (84-94); Mean Platelet Volume 8.8 fl (6-12); Monocytes % (Auto) 3.2 % (0.0-7.3); Platelet Count 165 K/mm3 (140-440); Red Blood Count 4.49 M/mm3 (3.65-5.03); Red Cell Distribution Width 15.9 % (13.2-15.2)
[2018-12-16 05:52] LABS: Basophils % (Auto) 0.3 % (0.0-1.8); Lymphocytes # (Auto) 0.6 K/mm3 (1.2-5.4); Monocytes # (Auto) 0.1 K/mm3 (0.0-0.8)
[2018-12-16] MEDS: LASIX IV SCH ×2 (05:55→18:30)
[2018-12-16] MEDS: COZAAR PO SCH (09:38)
[2018-12-16] MEDS: BABY ASPIRIN PO SCH (09:38)
[2018-12-16] MEDS: COREG PO SCH ×2 (09:38→22:08)
[2018-12-16] MEDS: SODIUM CHLORIDE FLUSH SYRINGE 10 ML IV SCH ×2 (09:39→22:09)
[2018-12-16] MEDS: LOVENOX SUB-Q SCH (09:39)
--- NOTE | 2018-12-16 09:45 | Progress Note ---
Assessment and Plan Assessment and plan: 63-year-old male patient with significant history of nonischemic cardiomyopathy ejection fraction 10-15% in November 2017, NSVT hypertension COPD substance abuse tobacco use noncompliant with medications was admitted through emergency room with worsening shortness of breath and chest pain. Patient is being managed by anti-failure medications and cardiology evaluated the patient and medications were optimized Assessment and plan; --Acute on Chronic Systolic Congestive Heart Failure: EF 10-15% Anti-Failure Medications, input-output monitoring Daily weights and cardiology evaluation, low sodium diet and fluid restriction, --Nonischemic cardiomyopathy; continue current anti-failure medications --Hypertension moderate control; continue current antihypertensives when necessary medications --Dyslipidemia; on statin --Medical noncompliance; patient strongly advised to comply with medications. Follow up visits Verbalized understanding --Ongoing tobacco use; smoking cessation counseling, nicotine patch as needed --History of recreational drug use; cocaine, advised to quit --DVT prophylaxis; Lovenox Monitor the patient closely and adjust the management as needed Follow-up cardiology evaluation and recommendations Disposition; discharge when medically stable History Interval history: Patient seen and examined medical records reviewed Admitted with worsening shortness of breath and worsening leg edema Acute on chronic systolic congestive heart failure Feels slightly better Denies chest pain, vital signs reviewed Hospitalist Physical - Constitutional Vitals: Temp Pulse Resp BP Pulse Ox 97.9 F 52 L 18 117/78 95 12/16/18 07:31 12/16/18 08:21 12/16/18 08:21 12/16/18 07:31 12/16/18 07:31 General appearance: Present: mild distress, well-nourished - EENT Eyes: Present: PERRL, EOM intact - Neck Neck: Present: supple, normal ROM - Respiratory Respiratory effort: normal Respiratory: bilateral: diminished, rales, negative: rhonchi, wheezing - Cardiovascular Rhythm: regular Heart Sounds: Present: S1 & S2 - Extremities Extremities: no ischemia Extremity abnormal: edema - Abdominal General gastrointestinal: soft, non-tender, non-distended, normal bowel sounds - Integumentary Integumentary: Present: clear, warm - Psychiatric Psychiatric: appropriate mood/affect, cooperative - Neurologic Neurologic: CNII-XII intact, moves all extremities Results - Labs CBC & Chem 7: 12/16/18 04:29 12/16/18 04:29 Labs: Laboratory Last Values WBC 3.5 K/mm3 (4.5-11.0) L 12/16/18 04: RBC 4.49 M/mm3 (3.65-5.03) 12/16/18 04: Hgb 13.3 gm/dl (11.8-15.2) 12/16/18 04: Hct 39.5 % (35.5-45.6) 12/16/18 04: MCV 88 fl (84-94) 12/16/18 04: MCH 30 pg (28-32) 12/16/18 04: MCHC 34 % (32-34) 12/16/18 04: RDW 15.9 % (13.2-15.2) H 12/16/18: Plt Count 165 K/mm3 (140-440) 12/16/18 04: Lymph % (Auto) 18.0 % (13.4-35.0) 12/16/18 04: [place] % (Auto) 3.2 % (0.0-7.3) 12/16/18 04: Eos % (Auto) 0.0 % (0.0-4.3) 12/16/18 04: Baso % (Auto) 0.3 % (0.0-1.8) 12/16/18 04: Lymph # 0.6 K/mm3 (1.2-5.4) L 12/16/18 04: [place] # 0.1 K/mm3 (0.0-0.8) 12/16/18 04: Eos # 0.0 K/mm3 (0.0-0.4) 12/16/18 04: Baso # 0.0 K/mm3 (0.0-0.1) 12/16/18 04: Seg Neutrophils % 78.5 % (40.0-70.0) H 12/16/18 04: Seg Neutrophils # 2.8 K/mm3 (1.8-7.7) 12/16/18 04: Sodium 141 mmol/L (137-145) 12/16/18 04: Potassium 4.0 mmol/L (3.6-5.0) 12/16/18 04: Chloride 101.9 mmol/L (98-107) 12/16/18 04:29 Carbon Dioxide 25 mmol/L (22-30) 12/16/18 04:29 Anion Gap 18 mmol/L 12/16/18 04:29 BUN 23 mg/dL (9-20) H 12/16/18 04:29 Creatinine 1.2 mg/dL (0.8-1.5) 12/16/18 04:29 Estimated GFR > 60 ml/min 12/16/18 04:29 BUN/Creatinine Ratio 19 % 12/16/18 04:29 Glucose 169 mg/dL (75-100) H 12/16/18 04:29 Calcium 8.4 mg/dL (8.4-10.2) 12/16/18 04:29 Magnesium 1.80 mg/dL (1.7-2.3) 12/15/18 20:32 Total Bilirubin 1.40 mg/dL (0.1-1.2) H 12/15/18 19:21 AST 96 units/L (5-40) H 12/15/18 19:21 ALT 95 units/L (7-56) H 12/15/18 19:21 Alkaline Phosphatase 86 units/L (35-129) 12/15/18 19:21 Total Creatine Kinase 326 units/L (55-170) H 12/16/18 04:29 CK-MB (CK-2) 5.5 ng/mL (0.0-4.0) H 12/16/18 04:29 CK-MB (CK-2) Rel Index 1.6 (0-4) 12/16/18 04:29 Troponin T < 0.010 ng/mL (0.00-0.029) 12/16/18 04:29 NT-Pro-B Natriuret Pep 88754 pg/mL (0-900) H 12/15/18 19:21 Total Protein 6.4 g/dL (6.3-8.2) 12/15/18 19:21 Albumin 3.7 g/dL (3.9-5) L 12/15/18 19:21 Albumin/Globulin Ratio 1.4 % 12/15/18 19:21 Active Medications - Current Medications Current Medications: Generic Name Dose Route Start Last Admin Trade Name Freq PRN Reason Stop Dose Admin Acetaminophen 650 mg 12/15/18 22:00 Tylenol PO Q4H PRN Pain MILD(1-3)/Fever >100.5/WATERS Albuterol 1 puff 12/16/18 09:43 Proair IH Q4H PRN Shortness Of Breath Albuterol/Ipratropium 1 ampul 12/16/18 02:00 12/16/18 08:21 Duoneb *Not For Prn Use* IH 1 ampul Q6HRT ONI Administration Aspirin 81 mg 12/16/18 10:00 12/16/18 09:38 Baby Aspirin PO 81 mg QDAY ONI Administration Atorvastatin Calcium 40 mg 12/15/18 22:00 12/15/18 21:42 Lipitor PO Not Given QHS ONI Carvedilol 25 mg 12/15/18 22:00 12/16/18 09:38 Coreg PO 25 mg Q12HR ONI Administration Enoxaparin Sodium 40 mg 12/16/18 10:00 12/16/18 09:39 Lovenox SUB-Q 40 mg QDAY@1000 ONI Administration Furosemide 40 mg 12/16/18 06:00 12/16/18 05:55 Lasix IV 40 mg BID@0600,1800 ON[facility] Administration Losartan Potassium 25 mg 12/15/18 22:00 12/16/18 09:38 Cozaar PO 25 mg QDAY ONI Administration Ondansetron HCl 4 mg 12/15/18 22:00 Zofran IV Q8H PRN Nausea And Vomiting Oxycodone/Acetaminophen 1 tab 12/15/18 23:57 12/16/18 08:30 Percocet 5/325 PO 1 tab Q4H PRN Administration Pain, Moderate (5-10) Sodium Chloride 10 ml 12/15/18 22:00 12/16/18 09:39 Sodium Chloride Flush Syringe 10 Ml IV 10 ml BID ONI Administration Sodium Chloride 10 ml 12/15/18 22:00 12/16/18 05:55 Sodium Chloride Flush Syringe 10 Ml IV 10 ml PRN PRN Administration LINE FLUSH
[2018-12-16] MEDS ORDERED: LOVENOX SUB-Q SCH (10:00)
[2018-12-16] MEDS ORDERED: PROVENTIL IH PRN (11:21)
--- NOTE | 2018-12-16 11:25 | Consultation ---
History of Present Illness Consult date: 12/16/18 Requesting physician: CHIKA ROD Consult reason: chest pain, congestive heart failure History of present illness: The pt is a 63 YO male with a past medical history of NICMP, chronic HFrEF, NSVT, HTN, HLP, COPD, tobacco use, cocaine use, medical noncompliance. He has been seen by our practice on multiple prior hospitalizations but has been noncompliant with OP follow up. He presented with complaints of chest pain, SOB and BLE swelling for 5 days prior to arrival. He describes his chest pain as an intermittent precordial sharp chest pain. He reports compliance with his home medication regimen and denies any recent illicit drug or ETOH use. Of note, LifeVest was placed in 11/2017 but the vest was returned to [employer] because pt did not like wearing it. He did not follow up as OP to readdress AICD candidacy. LHC done 10/2015 revealed normal coronaries. Echo done 11/2017 showed EF 10-15%, LA severely dilated, mild to mod MR, mod TR, RV mod to severely dilated, mild pulm HTN RVSP 41mmHg. Past History Past Medical History: heart failure, hypertension, hyperlipidemia Medications and Allergies Allergies Allergy/AdvReac Type Severity Reaction Status Date / Time No Known Allergies Allergy Verified 03/03/17 15:13 Home Medications Medication Instructions Recorded Confirmed Last Taken Type ALBUTEROL Inhaler(NF) [VENTOLIN 1 puff IH Q4H PRN #1 unit 06/19/18 12/15/18 Unknown Rx Inhaler(NF)] Acetaminophen [Acetaminophen TAB] 650 mg PO Q4H PRN #15 tablet 06/19/18 12/15/18 Unknown Rx AtorvaSTATin [Lipitor] 40 mg PO QHS #30 tablet 06/19/18 12/15/18 Unknown Rx Bumetanide [Bumex 1 mg tab] 1 mg PO Q12H #60 tablet 06/19/18 12/15/18 Unknown Rx Carvedilol [Coreg] 25 mg PO Q12H #60 tablet 06/19/18 12/15/18 Unknown Rx Losartan [Cozaar] 25 mg PO QDAY #30 tablet 06/19/18 12/15/18 Unknown Rx Spironolactone [Aldactone] 25 mg PO QDAY #30 tablet 06/19/18 12/15/18 Unknown Rx oxyCODONE /ACETAMINOPHEN [Percocet 1 tab PO Q6H PRN #10 tablet 06/19/18 12/15/18 Unknown Rx 5/325 mg] Active Meds: Active Medications Acetaminophen (Tylenol) 650 mg PO Q4H PRN PRN Reason: Pain MILD(1-3)/Fever >100.5/WATERS Albuterol (Proventil) 2.5 mg IH Q4HRT PRN PRN Reason: Shortness Of Breath Albuterol/Ipratropium (Duoneb *Not For Prn Use*) 1 ampul IH Q6HRT [facility] Last Admin: 12/16/18 08:21 Dose: 1 ampul Documented by: Aspirin (Baby Aspirin) 81 mg PO QDAY [facility] Last Admin: 12/16/18 09:38 Dose: 81 mg Documented by: Atorvastatin Calcium (Lipitor) 40 mg PO QHS [facility] Last Admin: 12/15/18 21:42 Dose: Not Given Documented by: Carvedilol (Coreg) 25 mg PO Q12HR [facility] Last Admin: 12/16/18 09:38 Dose: 25 mg Documented by: Enoxaparin Sodium (Lovenox) 40 mg SUB-Q QDAY@1000 [facility] Last Admin: 12/16/18 09:39 Dose: 40 mg Documented by: Furosemide (Lasix) 40 mg IV BID@0600,1800 [facility] Last Admin: 12/16/18 05:55 Dose: 40 mg Documented by: Losartan Potassium (Cozaar) 25 mg PO QDAY [facility] Last Admin: 12/16/18 09:38 Dose: 25 mg Documented by: Ondansetron HCl (Zofran) 4 mg IV Q8H PRN PRN Reason: Nausea And Vomiting Oxycodone/Acetaminophen (Percocet 5/325) 1 tab PO Q4H PRN PRN Reason: Pain, Moderate (5-10) Last Admin: 12/16/18 08:30 Dose: 1 tab Documented by: Sodium Chloride (Sodium Chloride Flush Syringe 10 Ml) 10 ml IV BID [facility] Last Admin: 12/16/18 09:39 Dose: 10 ml Documented by: Sodium Chloride (Sodium Chloride Flush Syringe 10 Ml) 10 ml IV PRN PRN PRN Reason: LINE FLUSH Last Admin: 12/16/18 05:55 Dose: 10 ml Documented by: Review of Systems Constitutional: no weight loss, no weight gain, no fever, no chills, no sweats Ears, nose, mouth and throat: no ear pain, no nose pain, no sinus pressure, no sinus pain Cardiovascular: chest pain, orthopnea, edema, shortness of breath, dyspnea on exertion, paroxysmal nocturnal dyspnea, leg edema, no palpitations, no rapid/irregular heart beat, no syncope, no lightheadedness Respiratory: shortness of breath, dyspnea on exertion, no cough, no congestion, no wheezing, no pain on inspiration Gastrointestinal: no abdominal pain, no nausea, no vomiting, no diarrhea, no constipation, no change in bowel habits Genitourinary Male: no dysuria, no hematuria, no flank pain, no discharge, no urinary frequency, no urinary hesitancy Musculoskeletal: no neck stiffness, no neck pain, no shooting arm pain, no arm numbness/tingling, no low back pain, no shooting leg pain Integumentary: no rash, no pruritis, no redness, no sores, no wounds Neurological: no head injury, no paralysis, no weakness, no parathesias, no numbness, no tingling, no seizures, no syncope Psychiatric: no anxiety Endocrine: no cold intolerance, no heat intolerance Hematologic/Lymphatic: no easy bruising, no easy bleeding Allergic/Immunologic: no urticaria, no wheezing Physical Examination Vital Signs Temp Pulse Resp BP Pulse Ox 98 F 101 H 26 H 150/115 95 12/15/18 19:16 12/15/18 19:16 12/15/18 19:16 12/15/18 19:16 12/15/18 19:16 General appearance: mild distress HEENT: Positive: PERRL, Normocephaly, Mucus Membranes Moist Neck: Positive: neck supple, trachea midline Cardiac: Positive: Reg Rate and Rhythm, S1/S2 Lungs: Positive: clear to auscultation Neuro: Positive: Grossly Intact, Cranial Nerve 2-12 Intact Abdomen: Positive: Soft. Negative: Tender Skin: Positive: Wound. Negative: Rash Musculoskeletal: No Pain Extremities: Absent: edema Results 12/16/18 04:29 12/16/18 04:29 Cardiac Enzymes 12/15/18 12/15/18 12/16/18 Range/Units 19:21 23:00 04:29 AST 96 H (5-40) units/L CK-MB (CK-2) 5.5 H 5.5 H (0.0-4.0) ng/mL CBC 12/15/18 12/16/18 Range/Units 19:21 04:29 WBC 5.4 3.5 L (4.5-11.0) K/mm3 RBC 4.30 4.49 (3.65-5.03) M/mm3 Hgb 12.7 13.3 (11.8-15.2) gm/dl Hct 38.4 39.5 (35.5-45.6) % Plt Count 157 165 (140-440) K/mm3 Lymph # 2.0 0.6 L (1.2-5.4) K/mm3 [place] # 0.7 0.1 (0.0-0.8) K/mm3 Eos # 0.1 0.0 (0.0-0.4) K/mm3 Baso # 0.0 0.0 (0.0-0.1) K/mm3 Comprehensive Metabolic Panel 12/15/18 12/16/18 Range/Units 19:21 04:29 Sodium 140 141 (137-145) mmol/L Potassium 4.2 4.0 (3.6-5.0) mmol/L Chloride 105.8 101.9 (98-107) mmol/L Carbon Dioxide 23 25 (22-30) mmol/L BUN 23 H 23 H (9-20) mg/dL Creatinine 1.2 1.2 (0.8-1.5) mg/dL Glucose 133 H 169 H (75-100) mg/dL Calcium 8.8 8.4 (8.4-10.2) mg/dL AST 96 H (5-40) units/L ALT 95 H (7-56) units/L Alkaline Phosphatase 86 (35-129) units/L Total Protein 6.4 (6.3-8.2) g/dL Albumin 3.7 L (3.9-5) g/dL - Imaging and Cardiology Echo: report reviewed (11/2017 showed EF 10-15%, LA severely dilated, mild to mod MR, mod TR, RV mod to severely dilated, mild pulm HTN RVSP 41mmHg. ) Cardiac cath: report reviewed (10/2015 revealed normal coronaries. ) EKG: report reviewed, image reviewed EKG interpretations - Telemetry EKG Rhythm: Sinus Rhythm - EKG Sinus rhythms and dysrhythmias: sinus rhythm Assessment and Plan Currently stable cardiac status. Cont present cardiac regimen. F/u echo. Likely d/c home in AM. Of note, LifeVest was placed in 11/2017 but the vest was returned to Life[employer]est because pt did not like wearing it. He did not follow up as OP to readdress AICD candidacy. The patient has been seen in conjunction with Dr. Sharma who agrees with the assessment and plan of care. - Patient Problems (1) Chest pain Current Visit: Yes Status: Acute (2) Acute on chronic heart failure with reduced ejection fraction Current Visit: Yes Status: Acute (3) Nonischemic cardiomyopathy Current Visit: Yes Status: Chronic (4) HTN (hypertension) Current Visit: Yes Status: Chronic Qualifiers: Hypertension type: essential hypertension Qualified Code(s): I10 - Essential (primary) hypertension (5) Hyperlipidemia Current Visit: Yes Status: Chronic Qualifiers: Hyperlipidemia type: mixed hyperlipidemia Qualified Code(s): E78.2 - Mixed hyperlipidemia (6) COPD (chronic obstructive pulmonary disease) Current Visit: Yes Status: Chronic (7) Tobacco use Current Visit: Yes Status: Chronic (8) Noncompliance Current Visit: Yes Status: Chronic (9) NSVT Current Visit: Yes Status: Chronic
[2018-12-17] MEDS: LASIX IV SCH (05:49)
[2018-12-17 06:27] LABS: Basophils % (Auto) 0.1 % (0.0-1.8); Hematocrit 37.4 % (35.5-45.6); Hemoglobin 12.4 gm/dl (11.8-15.2); Lymphocytes # (Auto) 0.9 K/mm3 (1.2-5.4); Lymphocytes % (Auto) 6.5 % (13.4-35.0); Mean Corpuscular HGB Conc 33 % (32-34); Mean Corpuscular Volume 88 fl (84-94); Monocytes # (Auto) 1.1 K/mm3 (0.0-0.8); Monocytes % (Auto) 8.4 % (0.0-7.3); Platelet Count 166 K/mm3 (140-440); Red Blood Count 4.24 M/mm3 (3.65-5.03); Red Cell Distribution Width 15.7 % (13.2-15.2)
[2018-12-17 06:53] LABS: BUN/Creatinine Ratio 25; Blood Urea Nitrogen 25 mg/dL (9-20); Calcium 7.8 mg/dL (8.4-10.2); Hemolysis Index 3
[2018-12-17] MEDS: DUONEB *Not for PRN Use IH SCH ×2 (07:32→13:11)
[2018-12-17] MEDS: COREG PO SCH (09:17)
[2018-12-17] MEDS: COZAAR PO SCH (09:17)
[2018-12-17] MEDS: BABY ASPIRIN PO SCH (09:18)
[2018-12-17] MEDS: SODIUM CHLORIDE FLUSH SYRINGE 10 ML IV SCH (09:19)
[2018-12-17] MEDS: LOVENOX SUB-Q SCH (09:19)
--- NOTE | 2018-12-17 10:33 | Discharge Summary ---
Providers - Providers Date of Admission: 12/15/18 22:01 Date of discharge: 12/17/18 Attending physician: ROJAS ASHER 12/15/18 20:19 Consult to Physician [CONS] Urgent Comment: Dr. Sims spoke with Dr. Rangel @ 2042 Consulting Provider: KOURTNEY VILLALOBOS Physician Instructions: Reason For Exam: cp known to you Primary care physician: [facility], Hospitalization Reason for admission: worsening shortness of breath and chest pain Condition: Stable Pertinent studies: Chest x-ray; stable cardiomegaly Echocardiogram; ejection fraction 15-20% Hospital course: 63-year-old male patient with significant history of nonischemic cardiomyopathy ejection fraction 10-15% in November 2017, NSVT hypertension COPD substance abuse tobacco use noncompliant with medications was admitted through emergency room with worsening shortness of breath and chest pain. Patient is being managed by anti-failure medications and cardiology evaluated the patient and medications were optimized Patient's symptoms significantly improved, advised smoking cessation, cardiology cleared for discharge Patient is given all the PRESCRIPTIONS . Vital signs stable at discharge Discharge diagnosis and management; --Acute on Chronic Systolic Congestive Heart Failure: EF 10-15% Anti-Failure Medications, input-output monitoring Daily weights and cardiology evaluation, low sodium diet and fluid restriction, --Nonischemic cardiomyopathy; continue current anti-failure medications --Hypertension moderate control; continue current antihypertensives when necessary medications --Dyslipidemia; on statin --Medical noncompliance; patient strongly advised to comply with medications. Follow up visits Verbalized understanding --Ongoing tobacco use; smoking cessation counseling, nicotine patch as needed --History of recreational drug use; cocaine, advised to quit --DVT prophylaxis; Lovenox Dictated by cardiology for discharge and follow up in the office Patient is stable at discharge Disposition: DC-01 TO HOME OR SELFCARE Time spent for discharge: 32 min Core Measure Documentation - Palliative Care Palliative Care/ Comfort Measures: Not Applicable - Core Measures Any of the following diagnoses?: heart failure - Heart Failure Discharge Requirements PREMA/ARB for LVSD if EF <40%: Yes Beta alex at discharge: Yes Exam - Constitutional Vitals: Temp Pulse Resp BP Pulse Ox 97.9 F 60 20 120/79 94 12/17/18 07:34 12/17/18 09:30 12/17/18 09:30 12/17/18 09:17 12/17/18 09:30 General appearance: Present: no acute distress, well-nourished - EENT Eyes: Present: PERRL, EOM intact - Neck Neck: Present: supple, normal ROM - Respiratory Respiratory effort: normal Respiratory: bilateral: diminished, negative: rales, rhonchi, wheezing - Cardiovascular Rhythm: regular Heart Sounds: Present: S1 & S2 - Extremities Extremities: no ischemia, No edema - Abdominal General gastrointestinal: Present: soft, non-tender, non-distended, normal bowel sounds - Integumentary Integumentary: Present: clear, warm - Musculoskeletal Musculoskeletal: strength equal bilaterally - Psychiatric Psychiatric: appropriate mood/affect, cooperative - Neurologic Neurologic: CNII-XII intact, moves all extremities Plan Activity: advance as tolerated, fall precautions Diet: low salt, other (cardiac diet) Special Instructions: smoking cessation Additional Instructions: Advised to comply with medications , diet and follow-up visits. Smoking cessation nicotine patch as needed Follow up with: [facility] MD HONG [Primary Care Provider] - 3-[facility] Days Prescriptions: Spironolactone [Aldactone] 25 mg PO QDAY #30 tablet Bumetanide [Bumex 1 mg tab] 1 mg PO Q12H #60 tablet Carvedilol [Coreg] 25 mg PO Q12H #60 tablet Losartan [Cozaar] 25 mg PO QDAY #30 tablet AtorvaSTATin [Lipitor] 40 mg PO QHS #30 tablet oxyCODONE /ACETAMINOPHEN [Percocet 5/325 mg] 1 tab PO Q6H PRN #10 tablet PRN Reason: Pain , Severe (7-10) ALBUTEROL Inhaler(NF) [VENTOLIN Inhaler(NF)] 1 puff IH Q4H PRN #1 unit PRN Reason: Shortness Of Breath
[2018-12-17 11:09] VITALS: BP 130/93
--- NOTE | 2018-12-17 11:13 | Progress Note ---
Assessment and Plan TTE reviewed. Currently stable cardiac status. Of note, LifeVest was placed in 11/2017 but the vest was returned to LifeVest because pt did not like wearing it. He did not follow up as OP to readdress AICD candidacy. Pt may discharge home from cardiology standpoint on home cardiac regimen. Recommend pt follow up in our office with Dr. Sharma within 3-5 days of hospital discharge ([phone]). Pt verbalizes understanding. The patient has been seen in conjunction with Dr. Sharma who agrees with the assessment and plan of care. - Patient Problems (1) Chest pain Current Visit: Yes Status: Acute (2) Acute on chronic heart failure with reduced ejection fraction Current Visit: Yes Status: Acute (3) Nonischemic cardiomyopathy Current Visit: Yes Status: Chronic (4) HTN (hypertension) Current Visit: Yes Status: Chronic Qualifiers: Hypertension type: essential hypertension Qualified Code(s): I10 - Essential (primary) hypertension (5) Hyperlipidemia Current Visit: Yes Status: Chronic Qualifiers: Hyperlipidemia type: mixed hyperlipidemia Qualified Code(s): E78.2 - Mixed hyperlipidemia (6) COPD (chronic obstructive pulmonary disease) Current Visit: Yes Status: Chronic (7) Tobacco use Current Visit: Yes Status: Chronic (8) Noncompliance Current Visit: Yes Status: Chronic (9) NSVT Current Visit: Yes Status: Chronic Subjective Date of service: 12/17/18 Principal diagnosis: HF; cp Interval history: pt resting comfortably in bed, states SOB and cp resolved. states he feels ready to discharge home today. Objective Last Vital Signs Temp 97.9 F 12/17/18 11:07 Pulse 75 12/17/18 11:07 Resp 18 12/17/18 11:07 BP 130/93 12/17/18 11:07 Pulse Ox 98 12/17/18 11:07 - Physical Examination General: No Apparent Distress HEENT: Positive: PERRL, Normocephaly, Mucus Membranes Moist Neck: Positive: neck supple, trachea midline Cardiac: Positive: Reg Rate and Rhythm, S1/S2 Lungs: Positive: Decreased Breath Sounds Neuro: Positive: Grossly Intact, Cranial Nerve 2-12 Intact Abdomen: Positive: Soft. Negative: Tender Skin: Positive: Wound. Negative: Rash Musculoskeletal: No Pain Extremities: Absent: edema - Labs and Meds CBC 12/17/18 Range/Units 04:33 WBC 13.4 H (4.5-11.0) K/mm3 RBC 4.24 (3.65-5.03) M/mm3 Hgb 12.4 (11.8-15.2) gm/dl Hct 37.4 (35.5-45.6) % Plt Count 166 (140-440) K/mm3 Lymph # 0.9 L (1.2-5.4) K/mm3 [place] # 1.1 H (0.0-0.8) K/mm3 Eos # 0.0 (0.0-0.4) K/mm3 Baso # 0.0 (0.0-0.1) K/mm3 Comprehensive Metabolic Panel 12/17/18 Range/Units 04:33 Sodium 141 (137-145) mmol/L Potassium 3.9 (3.6-5.0) mmol/L Chloride 99.4 (98-107) mmol/L Carbon Dioxide 27 (22-30) mmol/L BUN 25 H (9-20) mg/dL Creatinine 1.0 (0.8-1.5) mg/dL Glucose 121 H (75-100) mg/dL Calcium 7.8 L (8.4-10.2) mg/dL - Imaging and Cardiology EKG: report reviewed, image reviewed Echo: report reviewed (11/2017 showed EF 10-15%, LA severely dilated, mild to mod MR, mod TR, RV mod to severely dilated, mild pulm HTN RVSP 41mmHg. ) Cardiac cath: report reviewed (10/2015 revealed normal coronaries. ) - EKG Sinus rhythms and dysrhythmias: sinus rhythm
== END 2018-12-17 16:31 | disposition home or self-care (01) | DRG 291 ==
LOC: ED 18:57 → 4A 22:01
PROVIDERS: ADMIT Internal Medicine; ATTEND Internal Medicine
DX: I13.0 Hypertensive heart and chronic kidney disease with heart failure and stage 1 through stage 4 chronic kidney disease, or unspecified chronic kidney disease (principal); I50.23 Acute on chronic systolic (congestive) heart failure; I42.9 Cardiomyopathy, unspecified; I47.2 Ventricular tachycardia; F41.9 Anxiety disorder, unspecified; E78.2 Mixed hyperlipidemia; F14.90 Cocaine use, unspecified, uncomplicated; F17.210 Nicotine dependence, cigarettes, uncomplicated; I27.20 Pulmonary hypertension, unspecified; E78.5 Hyperlipidemia, unspecified; J44.9 Chronic obstructive pulmonary disease, unspecified; N18.3 Chronic kidney disease, stage 3 (moderate); Z91.19 Patient's noncompliance with other medical treatment and regimen; Z79.51 Long term (current) use of inhaled steroids; Z79.899 Other long term (current) drug therapy; Z82.49 Family history of ischemic heart disease and other diseases of the circulatory system; Z71.6 Tobacco abuse counseling; Z71.89 Other specified counseling
CPT/HCPCS: 36415; 71046; 80048; 80053; 82550; 82553; 83735; 83880; 84100; 84484; 85025; 93005; 93010; 93306; 94640; 94644; 96374; 96375; 99406; G0378; A9270-GY; J1650; J1940; J2930

== ENCOUNTER 2020-02-24 13:31 | Emergency (ER) | payer MEDICAID ==
--- NOTE | 2020-02-24 15:30 | Event Note ---
ED Screening Note ED Screening Note: SOB chest tightness productive cough began a couple of days ago no fever, no n/v/d, no leg swelling hx of CHF, COPD, HTN + current smoker This initial assessment/diagnostic orders/clinical plan/treatment(s) is/are subject to change based on patients health status, clinical progression and re- assessment by fellow clinical providers in the ED. Further treatment and workup at subsequent clinical providers discretion. Patient/guardian urged not to elope from the ED as their condition may be serious if not clinically assessed and managed. Initial orders include: labs, XR, EKG
--- NOTE | 2020-02-24 16:02 | XRay Report ---
CHEST 2 VIEWS INDICATION: SOB, chest tightness. COMPARISON: 12/15/2018 FINDINGS: Support devices: None. Heart: Stable mild cardiomegaly. Lungs/pleura: No acute air space or interstitial disease. No pneumothorax. Additional findings: None. IMPRESSION: Mild cardiomegaly. Lungs clear. Signer Name: Kenrick Faustin Jr, MD Signed: 02/24/2020 3:57 PM Workstation Name: [id number]
[2020-02-24 16:07] LABS: Basophils # (Auto) 0.1 K/mm3 (0.0-0.1); Basophils % (Auto) 1.2 % (0.0-1.8); Eosinophils # (Auto) 0.1 K/mm3 (0.0-0.4); Eosinophils % (Auto) 1.7 % (0.0-4.3); Hematocrit 39.3 % (35.5-45.6); Hemoglobin 13.1 gm/dl (11.8-15.2); Lymphocytes # (Auto) 1.1 K/mm3 (1.2-5.4); Lymphocytes % (Auto) 26.1 % (13.4-35.0); Mean Corpuscular HGB Conc 33 % (32-34); Mean Corpuscular Volume 91 fl (84-94); Monocytes # (Auto) 0.4 K/mm3 (0.0-0.8); Platelet Count 171 K/mm3 (140-440); Red Blood Count 4.34 M/mm3 (3.65-5.03); Red Cell Distribution Width 15.5 % (13.2-15.2)
[2020-02-24 16:20] LABS: Alanine Aminotransferase 14 units/L (7-56); Albumin 3.6 g/dL (3.9-5); BUN/Creatinine Ratio 14; Blood Urea Nitrogen 11 mg/dL (9-20); Calcium 8.7 mg/dL (8.4-10.2); Hemolysis Index 13
[2020-02-24] MEDS ORDERED: ASPIRIN 81 MG TAB CHEW PO ONE (18:06)
[2020-02-24] MEDS ORDERED: NITROGLYCERIN 0.4 MG TAB SUBL SL PRN (18:06)
[2020-02-24] MEDS ORDERED: FUROSEMIDE 20 MG/2 ML INJ IV ONE (18:07)
--- NOTE | 2020-02-24 18:16 | Emergency Department Report ---
ED General Adult HPI - General Chief complaint: Dyspnea/Respdistress Stated complaint: SOB/CP Time Seen by Provider: 02/24/20 15:28 Source: patient, EMS Mode of arrival: Wheelchair Limitations: No Limitations - History of Present Illness Initial comments: The patient presents to the emergency department the chief complaint of chest pain. Patient states he is having continuous substernal chest pain that has been present for the last 3 days. Patient states he has not had a stress test in the last 3 years. Patient denies any radiation of his chest pain. Patient denies any shortness of breath or anything making his chest pain worse. Patient denies any illicit drug use -: Sudden Location: chest Radiation: non-radiation Severity scale (0 -10): 4 Quality: dull Consistency: constant Improves with: none Worsens with: none Associated Symptoms: denies other symptoms Treatments Prior to Arrival: none - Related Data Previous Rx's Medication Instructions Recorded Last Taken Type Acetaminophen [Acetaminophen TAB] 650 mg PO Q4H PRN #15 tablet 06/19/18 Unknown Rx ALBUTEROL Inhaler(NF) [VENTOLIN 1 puff IH Q4H PRN #1 unit 12/17/18 Unknown Rx Inhaler(NF)] AtorvaSTATin [Lipitor] 40 mg PO QHS #30 tablet 12/17/18 Unknown Rx Bumetanide [Bumex 1 mg tab] 1 mg PO Q12H #60 tablet 12/17/18 Unknown Rx Losartan [Cozaar] 25 mg PO QDAY #30 tablet 12/17/18 Unknown Rx Spironolactone [Aldactone] 25 mg PO QDAY #30 tablet 12/17/18 Unknown Rx carvediloL [Coreg] 25 mg PO Q12H #60 tablet 12/17/18 Unknown Rx oxyCODONE /ACETAMINOPHEN [Percocet 1 tab PO Q6H PRN #10 tablet 12/17/18 Unknown Rx 5/325 mg] Allergies Allergy/AdvReac Type Severity Reaction Status Date / Time No Known Allergies Allergy Verified 03/03/17 15:13 ED Review of Systems ROS: Stated complaint: SOB/CP Other details as noted in HPI Constitutional: denies: chills, fever Eyes: denies: eye pain, eye discharge, vision change ENT: denies: ear pain, throat pain Respiratory: denies: cough, shortness of breath, wheezing Cardiovascular: chest pain. denies: palpitations Endocrine: no symptoms reported Gastrointestinal: denies: abdominal pain, nausea, diarrhea Genitourinary: denies: urgency, dysuria Musculoskeletal: denies: back pain, joint swelling, arthralgia Skin: denies: rash, lesions Neurological: denies: headache, weakness, paresthesias Psychiatric: denies: anxiety, depression Hematological/Lymphatic: denies: easy bleeding, easy bruising ED Past Medical Hx - Past Medical History Previous Medical History?: Yes Hx Hypertension: Yes Hx Heart Attack/AMI: No Hx Congestive Heart Failure: Yes Hx Diabetes: No Hx Deep Vein Thrombosis: No Hx Pulmonary Embolism: No Hx Seizures: Yes Hx Asthma: No Hx COPD: Yes Hx Tuberculosis: No Hx HIV: No Additional medical history: Cardiac cath 11/04/2015 normal coronary arteries. Severe LV dysfunction 20-25%. Nonischemic cardiomyopathy. Echocardiogram 11/01/2015: EF 10-15%, severe LA dilitation, mild to mod RA dilitation, Severe RV dilitation, LV mild dilitation - Surgical History Hx Coronary Stent: No Hx Open Heart Surgery: No Hx Pacemaker: No Hx Internal Defibrillator: No Hx Cholecystectomy: No Hx Appendectomy: No Hx Breast Surgery: No - Social History Smoking Status: Current Some Day Smoker Substance Use Type: None - Medications Home Medications: Home Medications Medication Instructions Recorded Confirmed Last Taken Type Acetaminophen [Acetaminophen TAB] 650 mg PO Q4H PRN #15 tablet 06/19/18 12/15/18 Unknown Rx ALBUTEROL Inhaler(NF) [VENTOLIN 1 puff IH Q4H PRN #1 unit 12/17/18 Unknown Rx Inhaler(NF)] AtorvaSTATin [Lipitor] 40 mg PO QHS #30 tablet 12/17/18 Unknown Rx Bumetanide [Bumex 1 mg tab] 1 mg PO Q12H #60 tablet 12/17/18 Unknown Rx Losartan [Cozaar] 25 mg PO QDAY #30 tablet 12/17/18 Unknown Rx Spironolactone [Aldactone] 25 mg PO QDAY #30 tablet 12/17/18 Unknown Rx carvediloL [Coreg] 25 mg PO Q12H #60 tablet 12/17/18 Unknown Rx oxyCODONE /ACETAMINOPHEN [Percocet 1 tab PO Q6H PRN #10 tablet 12/17/18 Unknown Rx 5/325 mg] ED Physical Exam - General Limitations: No Limitations General appearance: alert, in no apparent distress - Head Head exam: Present: atraumatic, normocephalic - Eye Eye exam: Present: normal appearance, PERRL, EOMI - ENT ENT exam: Present: mucous membranes moist - Neck Neck exam: Present: normal inspection - Respiratory Respiratory exam: Present: normal lung sounds bilaterally. Absent: respiratory distress - Cardiovascular Cardiovascular Exam: Present: regular rate, normal rhythm. Absent: systolic murmur, diastolic murmur, rubs, gallop - GI/Abdominal GI/Abdominal exam: Present: soft, normal bowel sounds. Absent: distended, tenderness - Rectal Rectal exam: Present: deferred - Extremities Exam Extremities exam: Present: normal inspection - Back Exam Back exam: Present: normal inspection - Neurological Exam Neurological exam: Present: alert, oriented X3, CN II-XII intact. Absent: motor sensory deficit - Psychiatric Psychiatric exam: Present: normal affect, normal mood - Skin Skin exam: Present: warm, dry, intact, normal color. Absent: rash ED Course Vital Signs 02/24/20 02/24/20 02/24/20 13:42 13:51 14:00 Temperature 97.7 F Pulse Rate 69 Respiratory 20 Rate Blood Pressure 159/114 168/94 168/94 Blood Pressure [Left] O2 Sat by Pulse 98 99 96 Oximetry 02/24/20 02/24/20 02/24/20 14:16 14:30 14:46 Temperature Pulse Rate Respiratory Rate Blood Pressure 165/88 174/83 195/89 Blood Pressure [Left] O2 Sat by Pulse 97 97 96 Oximetry 02/24/20 02/24/20 02/24/20 15:00 15:15 15:30 Temperature Pulse Rate Respiratory Rate Blood Pressure 173/92 176/84 176/84 Blood Pressure [Left] O2 Sat by Pulse 98 99 98 Oximetry 02/24/20 02/24/20 02/24/20 15:45 16:00 16:16 Temperature Pulse Rate Respiratory Rate Blood Pressure 170/87 170/87 167/89 Blood Pressure [Left] O2 Sat by Pulse 98 98 98 Oximetry 02/24/20 02/24/20 02/24/20 16:30 17:50 17:56 Temperature 98.7 F Pulse Rate 87 Respiratory 21 Rate Blood Pressure 170/129 172/86 Blood Pressure 151/120 [Left] O2 Sat by Pulse 96 98 98 Oximetry 02/24/20 02/24/20 02/24/20 18:00 18:15 18:31 Temperature Pulse Rate 90 88 89 Respiratory 23 28 H 28 H Rate Blood Pressure 166/125 166/125 166/125 Blood Pressure [Left] O2 Sat by Pulse 96 95 97 Oximetry 02/24/20 02/24/20 02/24/20 18:45 19:00 19:15 Temperature Pulse Rate 84 93 H 88 Respiratory 16 25 H 17 Rate Blood Pressure 166/125 160/122 160/122 Blood Pressure [Left] O2 Sat by Pulse 98 100 Oximetry 02/24/20 19:31 Temperature Pulse Rate 84 Respiratory 27 H Rate Blood Pressure 160/122 Blood Pressure [Left] O2 Sat by Pulse 95 Oximetry ED Medical Decision Making - Lab Data Result diagrams: 02/24/20 15:37 02/24/20 15:37 Lab Results 02/24/20 02/24/20 02/24/20 Range/Units 15:37 15:37 19:29 WBC 4.4 L (4.5-11.0) K/mm3 RBC 4.34 (3.65-5.03) M/mm3 Hgb 13.1 (11.8-15.2) gm/dl Hct 39.3 (35.5-45.6) % MCV 91 (84-94) fl MCH 30 (28-32) pg MCHC 33 (32-34) % RDW 15.5 H (13.2-15.2) % Plt Count 171 (140-440) K/mm3 Lymph % (Auto) 26.1 (13.4-35.0) % [place] % (Auto) 9.0 H (0.0-7.3) % Eos % (Auto) 1.7 (0.0-4.3) % Baso % (Auto) 1.2 (0.0-1.8) % Lymph # 1.1 L (1.2-5.4) K/mm3 Irion # 0.4 (0.0-0.8) K/mm3 Eos # 0.1 (0.0-0.4) K/mm3 Baso # 0.1 (0.0-0.1) K/mm3 Seg Neutrophils % 62.0 (40.0-70.0) % Seg Neutrophils # 2.7 (1.8-7.7) K/mm3 Sodium 140 (137-145) mmol/L Potassium 3.6 (3.6-5.0) mmol/L Chloride 105.7 (98-107) mmol/L Carbon Dioxide 23 (22-30) mmol/L Anion Gap 15 mmol/L BUN 11 (9-20) mg/dL Creatinine 0.8 (0.8-1.5) mg/dL Estimated GFR > 60 ml/min BUN/Creatinine Ratio 14 % Glucose 168 H (75-100) mg/dL Calcium 8.7 (8.4-10.2) mg/dL Total Bilirubin 0.50 (0.1-1.2) mg/dL AST 15 (5-40) units/L ALT 14 (7-56) units/L Alkaline Phosphatase 60 (35-129) units/L Troponin T < 0.010 (0.00-0.029) ng/mL NT-Pro-B Natriuret Pep 8564 H (0-900) pg/mL Total Protein 6.3 (6.3-8.2) g/dL Albumin 3.6 L (3.9-5) g/dL Albumin/Globulin Ratio 1.3 % Urine Opiates Screen Negative Urine Methadone Screen Negative Ur Barbiturates Screen Negative Ur Phencyclidine Scrn Negative Ur Amphetamines Screen Negative U Benzodiazepines Scrn Negative Urine Cocaine Screen Positive U Marijuana (THC) Screen Positive Drugs of Abuse Note Disclamer 02/24/20 Range/Units 20:57 WBC (4.5-11.0) K/mm3 RBC (3.65-5.03) M/mm3 Hgb (11.8-15.2) gm/dl Hct (35.5-45.6) % MCV (84-94) fl MCH (28-32) pg MCHC (32-34) % RDW (13.2-15.2) % Plt Count (140-440) K/mm3 Lymph % (Auto) (13.4-35.0) % Irion % (Auto) (0.0-7.3) % Eos % (Auto) (0.0-4.3) % Baso % (Auto) (0.0-1.8) % Lymph # (1.2-5.4) K/mm3 Irion # (0.0-0.8) K/mm3 Eos # (0.0-0.4) K/mm3 Baso # (0.0-0.1) K/mm3 Seg Neutrophils % (40.0-70.0) % Seg Neutrophils # (1.8-7.7) K/mm3 Sodium (137-145) mmol/L Potassium (3.6-5.0) mmol/L Chloride (98-107) mmol/L Carbon Dioxide (22-30) mmol/L Anion Gap mmol/L BUN (9-20) mg/dL Creatinine (0.8-1.5) mg/dL Estimated GFR ml/min BUN/Creatinine Ratio % Glucose (75-100) mg/dL Calcium (8.4-10.2) mg/dL Total Bilirubin (0.1-1.2) mg/dL AST (5-40) units/L ALT (7-56) units/L Alkaline Phosphatase (35-129) units/L Troponin T < 0.010 (0.00-0.029) ng/mL NT-Pro-B Natriuret Pep (0-900) pg/mL Total Protein (6.3-8.2) g/dL Albumin (3.9-5) g/dL Albumin/Globulin Ratio % Urine Opiates Screen Urine Methadone Screen Ur Barbiturates Screen Ur Phencyclidine Scrn Ur Amphetamines Screen U Benzodiazepines Scrn Urine Cocaine Screen U Marijuana (THC) Screen Drugs of Abuse Note - EKG Data -: EKG Interpreted by Hi EKG shows normal: sinus rhythm Rate: normal - EKG Data 02/24/20 18:22 Patient has inverted T waves in V4 V5 and V6 On prior EKGs on 12/12/2018 and 06/17/2018 the patient had inverted T waves in V5 and V6 Stress test reviewed for 06/18/2018 which shows severe left ventricular systolic dysfunction without a significant degree ischemia present Echocardiogram reviewed from 12/15/2018 shows a EF of 15 to 20% Cardiac catheterization from 11/04/2015 shows normal coronaries with severe left ventricular dysfunction. - Radiology Data Radiology results: report reviewed - Medical Decision Making Discussed results with patient and the need for admission but the patient politely declined stating he just wants to go home Patient given IV Lasix Critical care attestation.: If time is entered above; I have spent that time in minutes in the direct care of this critically ill patient, excluding procedure time. ED Disposition Clinical Impression: Chest pain, CHF (congestive heart failure) Disposition: TO HOME OR SELFCARE Is pt being admited?: No Does the pt Need Aspirin: No Condition: Stable Instructions: Chest Pain (ED), Heart Failure (ED) Additional Instructions: return if worse Please take your Lasix at home as prescribed Referrals: PRIMARY MD TERESITA [Primary Care Provider] - 3-5 Days NISA NUÑEZ MD [Staff Physician] - 3-5 Days Time of Disposition: 22:01
[2020-02-24 19:46] LABS: Amphetamine Screen,Urine Negative; Benzodiazepines Screen,Urine Negative; Methadone Screen,Urine Negative; Opiate Screen,Urine Negative
[2020-02-24 20:05] LABS: Cannabinoid Screen,Urine Positive; Cocaine Screen,Urine Positive
[2020-02-24 22:44] VITALS: BP 151/98
== END 2020-02-24 22:44 | disposition home or self-care (01) ==
LOC: ED 13:31
DX: R07.89 Other chest pain (principal); I11.0 Hypertensive heart disease with heart failure; I50.9 Heart failure, unspecified; J44.9 Chronic obstructive pulmonary disease, unspecified; F17.200 Nicotine dependence, unspecified, uncomplicated; Z86.69 Personal history of other diseases of the nervous system and sense organs; Z79.899 Other long term (current) drug therapy
CPT/HCPCS: 36415; 71046; 80053; 80307; 83880; 84484; 85025; 93005; 96374; 99284; J1940

== ENCOUNTER 2020-04-10 17:47 | Emergency (ER) | payer MEDICAID ==
[2020-04-10 23:02] VITALS: BP 183/141
[2020-04-10] MEDS ORDERED: ONDANSETRON 4 MG ODT TAB PO ONE (23:16)
[2020-04-10] MEDS ORDERED: oxyCODONE /ACETAMINOPHEN 5-325MG TAB PO ONE (23:16)
--- NOTE | 2020-04-10 23:16 | Emergency Department Report ---
ED Abdominal Pain HPI - General Chief Complaint: Abdominal Pain Stated Complaint: ABD PAIN PUI?: No Time Seen by Provider: 04/10/20 22:55 Source: patient Mode of arrival: Ambulatory Limitations: No Limitations - History of Present Illness Initial Comments: This is a 65-year-old male with history of hypertension, systolic CHF EF 50%, COPD, seizure disorder who presents with abdominal pain, vomiting and diarrhea for several weeks. 2 days ago he was evaluated by his PCP Dr. Whitman who prescribed Protonix Bentyl Zofran. He was given a diagnosis of GERD and possible peptic ulcer disease. At night he has epigastric pain. He was also given antidiarrheal medicine. He has intermittent mild nondescript pain mostly at night. He denies fever. Denies cough. Denies shortness of breath. According to EMR: CT abdomen pelvis revealed mild ascites, colonic diverticulosis without inflammation. Patient was recently discharged 2 weeks ago for acute CHF exacerbation. MD Complaint: abdominal pain -: Gradual, week(s) (Several weeks) Location: epigastric Radiation: chest Severity: moderate Severity scale (0 -10): 8 Quality: cramping, aching, dull Consistency: intermittent Improves With: eating Worsens With: other (Laying flat, worse at night) Associated Symptoms: nausea, vomiting, diarrhea - Related Data Previous Rx's Medication Instructions Recorded Last Taken Type Acetaminophen [Acetaminophen TAB] 650 mg PO Q4H PRN #15 tablet 06/19/18 Unknown Rx ALBUTEROL Inhaler(NF) [VENTOLIN 1 puff IH Q4H PRN #1 unit 12/17/18 Unknown Rx Inhaler(NF)] Albuterol Sulfate [Proventil Hfa] 2 puff IH Q4HR PRN #1 hfa.aer.ad 03/28/20 Unknown Rx AtorvaSTATin [Lipitor] 40 mg PO QHS #30 tablet 03/28/20 Unknown Rx Bumetanide [Bumex 1 mg tab] 1 mg PO Q12HR #60 tablet 03/28/20 Unknown Rx Losartan [Cozaar] 25 mg PO QDAY #30 tablet 03/28/20 Unknown Rx Ondansetron (Nf) [Zofran TAB] 4 mg PO Q8HR PRN #10 tablet 03/28/20 Unknown Rx Pantoprazole [Protonix] 40 mg PO QDAY #30 tablet 03/28/20 Unknown Rx Prednisone [predniSONE 10 mg 10 mg PO .TAPER #1 tab.ds.pk 03/28/20 Unknown Rx (6-Day Pack, 21 Tabs)] Spironolactone [Aldactone] 25 mg PO QDAY #30 tablet 03/28/20 Unknown Rx Spironolactone [Aldactone] 25 mg PO QDAY #30 tablet 03/28/20 Unknown Rx carvediloL [Coreg] 25 mg PO Q12HR #60 tablet 03/28/20 Unknown Rx oxyCODONE /ACETAMINOPHEN [Percocet 1 tab PO Q6H PRN #20 tablet 03/28/20 Unknown Rx 5/325 mg] predniSONE [Deltasone] 50 mg PO QDAY #5 tab 03/28/20 Unknown Rx traMADoL [Ultram 50 MG tab] 50 mg PO Q6HR PRN #30 tablet 03/28/20 Unknown Rx oxyCODONE /ACETAMINOPHEN [Percocet 1 tab PO Q6HR PRN #10 tablet 04/10/20 Unknown Rx 5/325] Allergies Allergy/AdvReac Type Severity Reaction Status Date / Time No Known Allergies Allergy Verified 03/25/20 07:40 ED Review of Systems ROS: Stated complaint: ABD PAIN Other details as noted in HPI Comment: All other systems reviewed and negative Constitutional: denies: fever, malaise ENT: denies: throat pain Respiratory: denies: cough, shortness of breath Cardiovascular: denies: chest pain Gastrointestinal: abdominal pain, nausea, vomiting, diarrhea ED Past Medical Hx - Past Medical History Previous Medical History?: Yes Hx Hypertension: Yes Hx Heart Attack/AMI: No Hx Congestive Heart Failure: Yes Hx Diabetes: No Hx Deep Vein Thrombosis: No Hx Pulmonary Embolism: No Hx Seizures: Yes Hx Asthma: No Hx COPD: Yes Hx Tuberculosis: No Hx HIV: No Additional medical history: Cardiac cath 11/04/2015 normal coronary arteries. Severe LV dysfunction 20-25%. Nonischemic cardiomyopathy. Echocardiogram 11/01/2015: EF 10-15%, severe LA dilitation, mild to mod RA dilitation, Severe RV dilitation, LV mild dilitation - Surgical History Past Surgical History?: No Hx Coronary Stent: No Hx Open Heart Surgery: No Hx Pacemaker: No Hx Internal Defibrillator: No Hx Cholecystectomy: No Hx Appendectomy: No Hx Breast Surgery: No - Social History Smoking Status: Current Every Day Smoker - Medications Home Medications: Home Medications Medication Instructions Recorded Confirmed Last Taken Type Acetaminophen [Acetaminophen TAB] 650 mg PO Q4H PRN #15 tablet 06/19/18 03/25/20 Unknown Rx ALBUTEROL Inhaler(NF) [VENTOLIN 1 puff IH Q4H PRN #1 unit 12/17/18 03/25/20 Unknown Rx Inhaler(NF)] Albuterol Sulfate [Proventil Hfa] 2 puff IH Q4HR PRN #1 hfa.aer.ad 03/28/20 Unknown Rx AtorvaSTATin [Lipitor] 40 mg PO QHS #30 tablet 03/28/20 Unknown Rx Bumetanide [Bumex 1 mg tab] 1 mg PO Q12HR #60 tablet 03/28/20 Unknown Rx Losartan [Cozaar] 25 mg PO QDAY #30 tablet 03/28/20 Unknown Rx Ondansetron (Nf) [Zofran TAB] 4 mg PO Q8HR PRN #10 tablet 03/28/20 Unknown Rx Pantoprazole [Protonix] 40 mg PO QDAY #30 tablet 03/28/20 Unknown Rx Prednisone [predniSONE 10 mg 10 mg PO .TAPER #1 tab.ds.pk 03/28/20 Unknown Rx (6-Day Pack, 21 Tabs)] Spironolactone [Aldactone] 25 mg PO QDAY #30 tablet 03/28/20 Unknown Rx Spironolactone [Aldactone] 25 mg PO QDAY #30 tablet 03/28/20 Unknown Rx carvediloL [Coreg] 25 mg PO Q12HR #60 tablet 03/28/20 Unknown Rx oxyCODONE /ACETAMINOPHEN [Percocet 1 tab PO Q6H PRN #20 tablet 03/28/20 Unknown Rx 5/325 mg] predniSONE [Deltasone] 50 mg PO QDAY #5 tab 03/28/20 Unknown Rx traMADoL [Ultram 50 MG tab] 50 mg PO Q6HR PRN #30 tablet 03/28/20 Unknown Rx oxyCODONE /ACETAMINOPHEN [Percocet 1 tab PO Q6HR PRN #10 tablet 04/10/20 Unknown Rx 5/325] ED Physical Exam - General Limitations: No Limitations General appearance: alert, in no apparent distress - Head Head exam: Present: atraumatic, normocephalic - Eye Eye exam: Present: normal appearance - ENT ENT exam: Present: mucous membranes moist - Neck Neck exam: Present: normal inspection, full ROM - Respiratory Respiratory exam: Present: normal lung sounds bilaterally. Absent: respiratory distress, wheezes, rales - Cardiovascular Cardiovascular Exam: Present: regular rate, normal rhythm, normal heart sounds. Absent: systolic murmur, diastolic murmur, rubs, gallop - GI/Abdominal GI/Abdominal exam: Present: soft, normal bowel sounds. Absent: distended, tenderness, guarding, rebound - Rectal Rectal exam: Present: deferred - Extremities Exam Extremities exam: Present: normal inspection - Neurological Exam Neurological exam: Present: alert, oriented X3 - Psychiatric Psychiatric exam: Present: normal affect, normal mood - Skin Skin exam: Present: warm, dry, intact, normal color. Absent: rash ED Course Vital Signs 04/10/20 04/10/20 04/10/20 17:51 22:59 23:08 Temperature 97.4 F L 97.6 F Pulse Rate 98 H 93 H Respiratory 20 18 18 Rate Blood Pressure 171/135 Blood Pressure 183/141 [Right] O2 Sat by Pulse 99 100 Oximetry ED Medical Decision Making - Medical Decision Making Mr. Ascencio is a 65-year-old male with several weeks of abdominal pain vomiting diarrhea. Patient recently referred to pain management for chronic pain. He has been opioid dependent for several years. I suspect a component of opioid withdrawal as well as peptic ulcer disease GERD. I do not suspect acute inflammatory process in the abdomen. He is afebrile. Abdomen soft nontender. Patient appears well. He is talkative and comfortable. He has had recent abdominal work-up while admitted for CHF exacerbation. He is followed closely by his PCP Dr. Whitman. I prescribed 10 tablets of Percocet. Critical care attestation.: If time is entered above; I have spent that time in minutes in the direct care of this critically ill patient, excluding procedure time. ED Disposition Clinical Impression: Gastroesophageal reflux disease, Abdominal pain Disposition: - TO HOME OR SELFCARE Is pt being admited?: No Does the pt Need Aspirin: No Condition: Stable Instructions: Acute Abdominal Pain (ED) Prescriptions: oxyCODONE /ACETAMINOPHEN [Percocet 5/325] 1 tab PO Q6HR PRN #10 tablet PRN Reason: Pain Referrals: EILEEN WHITMAN MD [Staff Physician] - 3-5 Days
== END 2020-04-10 23:30 | disposition home or self-care (01) ==
LOC: ED 17:47
DX: K21.9 Gastro-esophageal reflux disease without esophagitis (principal); R11.2 Nausea with vomiting, unspecified; I50.9 Heart failure, unspecified; I11.0 Hypertensive heart disease with heart failure; R56.9 Unspecified convulsions; J44.9 Chronic obstructive pulmonary disease, unspecified; F17.200 Nicotine dependence, unspecified, uncomplicated; Z79.899 Other long term (current) drug therapy
CPT/HCPCS: 99282; Q0162

== ENCOUNTER 2020-05-03 13:19 | Emergency (ER) | payer MEDICAID ==
--- NOTE | 2020-05-03 13:27 | Emergency Department Report ---
Blank Doc - Documentation Documentation: 65-year-old male that presents with abdominal pain with n/v. This initial assessment/diagnostic orders/clinical plan/treatment(s) is/are subject to change based on patient's health status, clinical progression and re- assessment by fellow clinical providers in the ED. Further treatment and workup at subsequent clinical providers discretion. Patient/guardians urged not to elope from the ED as their condition may be serious if not clinically assessed and managed. Initial orders include: 1- Patient sent to [facility] for further evaluation and treatment 2- labs 3- UA
[2020-05-03 13:50] LABS: Hematocrit 42.2 % (35.5-45.6); Mean Corpuscular HGB Conc 33 % (32-34); Mean Corpuscular Volume 90 fl (84-94); Platelet Count 205 K/mm3 (140-440); Red Blood Count 4.71 M/mm3 (3.65-5.03); Red Cell Distribution Width 15.9 % (13.2-15.2)
[2020-05-03 14:09] LABS: Alanine Aminotransferase 15 units/L (7-56); Albumin 3.7 g/dL (3.9-5); BUN/Creatinine Ratio 10; Blood Urea Nitrogen 11 mg/dL (9-20); Hemolysis Index 32
[2020-05-03 14:29] LABS: Total Cells Counted 100
[2020-05-03 14:30] LABS: Anisocytosis Few; Platelet Estimate Consistent w Auto; Poikilocytosis Few
[2020-05-03] MEDS ORDERED: LIDOCAINE VISCOUS 2% 15 ML ORAL LIQD PO ONE (14:57)
[2020-05-03] MEDS ORDERED: ONDANSETRON 4 MG ODT TAB PO ONE (14:57)
[2020-05-03] MEDS ORDERED: DICYCLOMINE 20 MG/2 ML INJ IM ONE (14:57)
--- NOTE | 2020-05-03 15:03 | Emergency Department Report ---
ED General Adult HPI - General Chief complaint: Abdominal Pain Stated complaint: ABDOMINAL PAIN,COPH,CHF Time Seen by Provider: 05/03/20 13:27 Source: patient Mode of arrival: Ambulatory Limitations: No Limitations - History of Present Illness Initial comments: Patient is a 65-year-old male past medical history of cardiomyopathy and COPD who presents with abdominal pain. Patient has had multiple visits to the ER within the last 2 months patient states that he has been having epigastric abdominal pain for the last 2 months and some intermittent nausea nothing makes it better nothing makes it worse. Patient recently had a CT scan done last week which was unremarkable. Patient states he has a primary care doctor but has not followed up with him. - Related Data Previous Rx's Medication Instructions Recorded Last Taken Type Acetaminophen [Acetaminophen TAB] 650 mg PO Q4H PRN #15 tablet 06/19/18 Unknown Rx ALBUTEROL Inhaler(NF) [VENTOLIN 1 puff IH Q4H PRN #1 unit 12/17/18 Unknown Rx Inhaler(NF)] Albuterol Sulfate [Proventil Hfa] 2 puff IH Q4HR PRN #1 hfa.aer.ad 03/28/20 Unknown Rx AtorvaSTATin [Lipitor] 40 mg PO QHS #30 tablet 03/28/20 Unknown Rx Bumetanide [Bumex 1 mg tab] 1 mg PO Q12HR #60 tablet 03/28/20 Unknown Rx Losartan [Cozaar] 25 mg PO QDAY #30 tablet 03/28/20 Unknown Rx Ondansetron (Nf) [Zofran TAB] 4 mg PO Q8HR PRN #10 tablet 03/28/20 Unknown Rx Pantoprazole [Protonix] 40 mg PO QDAY #30 tablet 03/28/20 Unknown Rx Prednisone [predniSONE 10 mg 10 mg PO .TAPER #1 tab.ds.pk 03/28/20 Unknown Rx (6-Day Pack, 21 Tabs)] Spironolactone [Aldactone] 25 mg PO QDAY #30 tablet 03/28/20 Unknown Rx Spironolactone [Aldactone] 25 mg PO QDAY #30 tablet 03/28/20 Unknown Rx carvediloL [Coreg] 25 mg PO Q12HR #60 tablet 03/28/20 Unknown Rx predniSONE [Deltasone] 50 mg PO QDAY #5 tab 03/28/20 Unknown Rx traMADoL [Ultram 50 MG tab] 50 mg PO Q6HR PRN #30 tablet 03/28/20 Unknown Rx oxyCODONE /ACETAMINOPHEN [Percocet 1 tab PO Q6HR PRN #10 tablet 04/10/20 Unknown Rx 5/325] Furosemide [Lasix] 20 mg PO QDAY #7 tablet 04/26/20 Unknown Rx Ondansetron [Zofran Odt] 4 mg PO Q8HR PRN #20 tab.rapdis 04/26/20 Unknown Rx oxyCODONE /ACETAMINOPHEN [Percocet 1 tab PO Q6H PRN #14 tablet 04/26/20 Unknown Rx 5/325 mg] Allergies Allergy/AdvReac Type Severity Reaction Status Date / Time No Known Allergies Allergy Verified 03/25/20 07:40 ED Review of Systems ROS: Stated complaint: ABDOMINAL PAIN,COPH,CHF Other details as noted in HPI Constitutional: denies: chills, fever Eyes: denies: eye pain, eye discharge, vision change ENT: denies: ear pain, throat pain Respiratory: denies: cough, shortness of breath, wheezing Cardiovascular: denies: chest pain, palpitations Endocrine: no symptoms reported Gastrointestinal: abdominal pain. denies: nausea, diarrhea Genitourinary: denies: urgency, dysuria Musculoskeletal: denies: back pain, joint swelling, arthralgia Skin: denies: rash, lesions Neurological: denies: headache, weakness, paresthesias Psychiatric: denies: anxiety, depression Hematological/Lymphatic: denies: easy bleeding, easy bruising ED Past Medical Hx - Past Medical History Previous Medical History?: Yes Hx Hypertension: Yes Hx Heart Attack/AMI: No Hx Congestive Heart Failure: Yes Hx Diabetes: Yes Hx Deep Vein Thrombosis: No Hx Pulmonary Embolism: No Hx Seizures: Yes Hx Asthma: No Hx COPD: Yes Hx Tuberculosis: No Hx HIV: No Additional medical history: Cardiac cath 11/04/2015 normal coronary arteries. Severe LV dysfunction 20-25%. Nonischemic cardiomyopathy. Echocardiogram 11/01/2015: EF 10-15%, severe LA dilitation, mild to mod RA dilitation, Severe RV dilitation, LV mild dilitation - Surgical History Past Surgical History?: Yes Hx Coronary Stent: No Hx Open Heart Surgery: No Hx Pacemaker: No Hx Internal Defibrillator: No Hx Cholecystectomy: No Hx Appendectomy: No Hx Breast Surgery: No Additional Surgical History: brain surgery - Social History Smoking Status: Current Every Day Smoker Substance Use Type: None - Medications Home Medications: Home Medications Medication Instructions Recorded Confirmed Last Taken Type Acetaminophen [Acetaminophen TAB] 650 mg PO Q4H PRN #15 tablet 06/19/18 03/25/20 Unknown Rx ALBUTEROL Inhaler(NF) [VENTOLIN 1 puff IH Q4H PRN #1 unit 12/17/18 03/25/20 Unknown Rx Inhaler(NF)] Albuterol Sulfate [Proventil Hfa] 2 puff IH Q4HR PRN #1 hfa.aer.ad 03/28/20 Unknown Rx AtorvaSTATin [Lipitor] 40 mg PO QHS #30 tablet 03/28/20 Unknown Rx Bumetanide [Bumex 1 mg tab] 1 mg PO Q12HR #60 tablet 03/28/20 Unknown Rx Losartan [Cozaar] 25 mg PO QDAY #30 tablet 03/28/20 Unknown Rx Ondansetron (Nf) [Zofran TAB] 4 mg PO Q8HR PRN #10 tablet 03/28/20 Unknown Rx Pantoprazole [Protonix] 40 mg PO QDAY #30 tablet 03/28/20 Unknown Rx Prednisone [predniSONE 10 mg 10 mg PO .TAPER #1 tab.ds.pk 03/28/20 Unknown Rx (6-Day Pack, 21 Tabs)] Spironolactone [Aldactone] 25 mg PO QDAY #30 tablet 03/28/20 Unknown Rx Spironolactone [Aldactone] 25 mg PO QDAY #30 tablet 03/28/20 Unknown Rx carvediloL [Coreg] 25 mg PO Q12HR #60 tablet 03/28/20 Unknown Rx predniSONE [Deltasone] 50 mg PO QDAY #5 tab 03/28/20 Unknown Rx traMADoL [Ultram 50 MG tab] 50 mg PO Q6HR PRN #30 tablet 03/28/20 Unknown Rx oxyCODONE /ACETAMINOPHEN [Percocet 1 tab PO Q6HR PRN #10 tablet 04/10/20 Unknown Rx 5/325] Furosemide [Lasix] 20 mg PO QDAY #7 tablet 04/26/20 Unknown Rx Ondansetron [Zofran Odt] 4 mg PO Q8HR PRN #20 tab.rapdis 04/26/20 Unknown Rx oxyCODONE /ACETAMINOPHEN [Percocet 1 tab PO Q6H PRN #14 tablet 04/26/20 Unknown Rx 5/325 mg] ED Physical Exam - General Limitations: No Limitations General appearance: alert, in no apparent distress - Head Head exam: Present: atraumatic, normocephalic - Eye Eye exam: Present: normal appearance - ENT ENT exam: Present: mucous membranes moist - Neck Neck exam: Present: normal inspection - Respiratory Respiratory exam: Present: normal lung sounds bilaterally. Absent: respiratory distress - Cardiovascular Cardiovascular Exam: Present: regular rate, normal rhythm. Absent: systolic murmur, diastolic murmur, rubs, gallop - GI/Abdominal GI/Abdominal exam: Present: soft, normal bowel sounds - Rectal Rectal exam: Present: deferred - Extremities Exam Extremities exam: Present: normal inspection - Back Exam Back exam: Present: normal inspection - Neurological Exam Neurological exam: Present: alert, oriented X3 - Psychiatric Psychiatric exam: Present: normal affect, normal mood - Skin Skin exam: Present: warm, dry, intact, normal color. Absent: rash ED Course Vital Signs 05/03/20 13:25 Temperature 98 F Pulse Rate 66 Respiratory 16 Rate Blood Pressure 153/122 [Right] O2 Sat by Pulse 98 Oximetry ED Medical Decision Making - Lab Data Result diagrams: 05/03/20 13:33 05/03/20 13:33 Lab Results 05/03/20 05/03/20 Range/Units 13:33 13:33 WBC 4.4 L (4.5-11.0) K/mm3 RBC 4.71 (3.65-5.03) M/mm3 Hgb 14.0 (11.8-15.2) gm/dl Hct 42.2 (35.5-45.6) % MCV 90 (84-94) fl MCH 30 (28-32) pg MCHC 33 (32-34) % RDW 15.9 H (13.2-15.2) % Plt Count 205 (140-440) K/mm3 [place] % (Auto) Firearms Specialist Add Manual Diff Complete Total Counted 100 Seg Neuts % (Manual) 55.0 (40.0-70.0) % Band Neutrophils % 0 % Lymphocytes % (Manual) 29.0 (13.4-35.0) % Reactive Lymphs % (Man) 0 % Monocytes % (Manual) 12.0 H (0.0-7.3) % Eosinophils % (Manual) 2.0 (0.0-4.3) % Basophils % (Manual) 2.0 H (0.0-1.8) % Metamyelocytes % 0 % Myelocytes % 0 % Promyelocytes % 0 % Blast Cells % 0 % Nucleated RBC % Not Reportable Seg Neutrophils # Man 2.4 (1.8-7.7) K/mm3 Band Neutrophils # 0.0 K/mm3 Lymphocytes # (Manual) 1.3 (1.2-5.4) K/mm3 Abs React Lymphs (Man) 0.0 K/mm3 Monocytes # (Manual) 0.5 (0.0-0.8) K/mm3 Eosinophils # (Manual) 0.1 (0.0-0.4) K/mm3 Basophils # (Manual) 0.1 (0.0-0.1) K/mm3 Metamyelocytes # 0.0 K/mm3 Myelocytes # 0.0 K/mm3 Promyelocytes # 0.0 K/mm3 Blast Cells # 0.0 K/mm3 WBC Morphology Not Reportable Hypersegmented Neuts Not Reportable Hyposegmented Neuts Not Reportable Hypogranular Neuts Not Reportable Smudge Cells Not Reportable Toxic Granulation Not Reportable Toxic Vacuolation Not Reportable Dohle Bodies Not Reportable Pelger-Huet Anomaly Not Reportable Ashly Rods Not Reportable Platelet Estimate Consistent w auto Clumped Platelets Not Reportable Plt Clumps, EDTA Not Reportable Large Platelets Not Reportable Giant Platelets Not Reportable Platelet Satelliting Not Reportable Plt Morphology Comment Not Reportable RBC Morphology Not Reportable Dimorphic RBCs Not Reportable Polychromasia Not Reportable Hypochromasia Not Reportable Poikilocytosis Few Anisocytosis Few Microcytosis Not Reportable Macrocytosis Not Reportable Spherocytes Not Reportable Pappenheimer Bodies Not Reportable Sickle Cells Not Reportable Target Cells Not Reportable Tear Drop Cells Not Reportable Ovalocytes Not Reportable Helmet Cells Not Reportable Mohr-Hilldale Bodies Not Reportable [place] Rings Not Reportable Sweet Cells Not Reportable Bite Cells Not Reportable Crenated Cell Not Reportable Elliptocytes Not Reportable Acanthocytes (Spur) Not Reportable Rouleaux Not Reportable Hemoglobin C Crystals Not Reportable Schistocytes Not Reportable Malaria parasites Not Reportable Barak Bodies Not Reportable Hem Pathologist Commnt No Sodium 137 (137-145) mmol/L Potassium 4.3 (3.6-5.0) mmol/L Chloride 98.7 (98-107) mmol/L Carbon Dioxide 23 (22-30) mmol/L Anion Gap 20 mmol/L BUN 11 (9-20) mg/dL Creatinine 1.1 (0.8-1.3) mg/dL Estimated GFR > 60 ml/min BUN/Creatinine Ratio 10 % Glucose 107 H (75-100) mg/dL Calcium 9.0 (8.4-10.2) mg/dL Total Bilirubin 0.90 (0.1-1.2) mg/dL AST 19 (5-40) units/L ALT 15 (7-56) units/L Alkaline Phosphatase 59 (35-129) units/L Total Protein 6.8 (6.3-8.2) g/dL Albumin 3.7 L (3.9-5) g/dL Albumin/Globulin Ratio 1.2 % Lipase 11 L (13-60) units/L - Medical Decision Making Chief medical diagnosis: Gastroenteritis Differential medical diagnosis: GERD, chronic pain,ascites I will get blood work oral Zofran GI cocktail and IM Bentyl. Patient does not require any imaging is abdominal wall is soft. He has had multiple visits and multiple work-ups for the ED all which have just showed small volume ascites. I will discharge the patient home with follow-up with his primary care provider additional verbal discharge instructions were given patient agrees with plan. Critical care attestation.: If time is entered above; I have spent that time in minutes in the direct care of this critically ill patient, excluding procedure time. ED Disposition Clinical Impression: Epigastric abdominal pain Disposition: DC-01 TO HOME OR SELFCARE Is pt being admited?: No Does the pt Need Aspirin: No Condition: Stable Instructions: Abdominal Pain (ED) Referrals: PRIMARY CARE, [Primary Care Provider] - 3-5 Days ROMEL GAN MD [Staff Physician] - 3-5 Days
[2020-05-03] MEDS ORDERED: ALUM-MAG HYDROXIDE-SIMETHICONE 200-200-20MG/5ML ORAL LIQD 30 ML PO ONE (15:25)
[2020-05-03 16:21] LABS: Bilirubin,Urine NEG (Negative); Blood,Urine NEG (Negative); Color,Urine Amber (Yellow); Mucus,Urine 1+ /HPF
[2020-05-03 16:24] LABS: Protein,Urine >500 mg/dL (Negative)
[2020-05-03 17:39] VITALS: BP 158/117
== END 2020-05-03 17:46 | disposition home or self-care (01) ==
LOC: ED 13:19
DX: R10.13 Epigastric pain (principal); I11.0 Hypertensive heart disease with heart failure; I50.9 Heart failure, unspecified; E11.9 Type 2 diabetes mellitus without complications; J44.9 Chronic obstructive pulmonary disease, unspecified; F17.200 Nicotine dependence, unspecified, uncomplicated; Z79.899 Other long term (current) drug therapy; Z86.69 Personal history of other diseases of the nervous system and sense organs; Z98.890 Other specified postprocedural states
CPT/HCPCS: 36415; 80053; 81001; 83690; 85007; 85025; 96372; 99283; J0500; Q0162